=== PATIENT | female | born 1955 | race Caucasian/White ===

== ENCOUNTER → 2018-01-27 16:08 | Outpatient (CLI) | payer OTHER, SELFPAY ==
[2018-01-27 17:34] LABS: Absolute Lymphocyte Count 2.71 X10^3/ul (0.83-4.51); Basophil# 0.03 X10^3/uL; Basophil% 0.4 % (0-1); Eosinophil# 0.09 X10^3/uL; Eosinophils% 1.2 % (0-5); Hematocrit 41.8 % (37-47); Lymphocyte # 2.71 X10^3/ul (4.0); Lymphocyte % 36.9 % (19-41); Mean Corp Hgb Conc 33.5 g/gl (32-36); Mean Corpuscular Hgb 31.3 pg (27.0-32.0); Mean Corpuscular Volume 93.3 fL (81-99); Mean Platelet Vol. 9.5 fl (6.2-12.0); Monocyte# 0.55 X10^3/uL; Monocyte% 7.5 % (0-10); Neutrophil # 3.95 X10^3/uL (2.7-7.7); Neutrophil % 53.9 % (47-70); Platelet Count 314 K/mm3 (150-450); RBC Distribution Width SD 43.4 fl (35.1-43.9); Red Blood Count 4.48 M/mm3 (4.2-5.4); White Blood Count 7.3 K/mm3 (4.4-11.0)
[2018-01-27 17:49] LABS: POSITIVE COUNT NO; POSITIVE DIFFERENTIAL NO; POSITIVE MORPHOLOGY NO
== END ==
PROVIDERS: Family Provider Family Medicine; PCP Family Medicine; Visit Provider Internal Medicine Gastroenterology
DX: K50.90 Crohn's disease, unspecified, without complications (principal)
CPT/HCPCS: 36415; 85025

== ENCOUNTER → 2018-02-03 15:13 | Outpatient (CLI) | payer OTHER, SELFPAY | PROVIDERS: Family Provider Family Medicine; PCP Family Medicine; Visit Provider Internal Medicine Gastroenterology | DX: K50.90 Crohn's disease, unspecified, without complications (principal) ==

== ENCOUNTER 2018-02-27 10:12 | Outpatient (RCR) | payer OTHER, SELFPAY ==
[2018-02-27 13:04] LABS: AST(SGOT) 16 U/L (15-37); Alanine Aminotransfer ALT/SGPT 26 U/L (13-56); Albumin, Serum 3.8 g/dL (3.2-5.0); Alkaline Phosphatase 107 U/L (45-117); Bilirubin, Direct 0.11 mg/dL (0.00-0.30); Globulin 3.1 g/dL (2.2-4.2); Protein, Total 6.9 g/dL (6.4-8.2)
[2018-02-27 13:22] LABS: Absolute Lymphocyte Count 2.37 X10^3/ul (0.83-4.51); Absolute Neutrophil Count 4.8 X10^3/uL (2.0-7.7); Basophil# 0.02 X10^3/uL; Basophil% 0.3 % (0-1); Eosinophil# 0.06 X10^3/uL; Eosinophils% 0.8 % (0-5); Hematocrit 42.8 % (37-47); Lymphocyte # 2.37 X10^3/ul (4.0); Lymphocyte % 30.4 % (19-41); Mean Corp Hgb Conc 32.7 g/gl (32-36); Mean Corpuscular Hgb 30.9 pg (27.0-32.0); Mean Corpuscular Volume 94.5 fL (81-99); Mean Platelet Vol. 9.9 fl (6.2-12.0); Monocyte# 0.55 X10^3/uL; Monocyte% 7.1 % (0-10); Neutrophil # 4.78 X10^3/uL (2.7-7.7); Neutrophil % 61.1 % (47-70); Platelet Count 328 K/mm3 (150-450); RBC Distribution Width CV 13.4 % (11.6-14.6); RBC Distribution Width SD 46.5 fl (35.1-43.9); Red Blood Count 4.53 M/mm3 (4.2-5.4); White Blood Count 7.8 K/mm3 (4.4-11.0)
[2018-02-27 13:33] LABS: POSITIVE COUNT NO; POSITIVE DIFFERENTIAL NO; POSITIVE MORPHOLOGY NO
== END 2018-02-27 11:00 | disposition home or self-care (01) ==
LOC: MTLAB 10:12
PROVIDERS: Family Provider Family Medicine; PCP Family Medicine; Visit Provider Internal Medicine Gastroenterology
DX: K50.90 Crohn's disease, unspecified, without complications (principal)
CPT/HCPCS: 36415; 80076; 85025

== ENCOUNTER → 2018-04-13 07:47 | Outpatient (CLI) | payer OTHER, SELFPAY ==
--- NOTE | 2018-04-13 07:50 | BI_ITS ---
MAMMOGRAPHY - BILATERAL SCREENING REASON FOR EXAM: Female, 62 years old. Routine annual screening examination. PERTINENT HISTORY: Non-contributory. TECHNIQUE: Digital bilateral breast des (3D mammographic acquisition) in the CC and MLO projections. 2-D mediolateral oblique (MLO) and craniocaudad (CC) views of both breasts were obtained. CAD: Full Field Digital Mammography with Computer Added Detection was performed. COMPARISON: Comparison is made with prior study dated March 15, 2017 and May 15, 2015. FINDINGS: Breast Composition: There are scattered areas of fibroglandular density. There are no dominant masses or suspicious calcifications. Stable benign-appearing small bilateral axillary lymph nodes. No other significant abnormalities are identified. There has been no significant change since the prior study. BI/SCREENING MAMM (CAD), BILAT IMPRESSION: Stable bilateral screening mammogram. Yearly follow-up mammogram recommended. (A) ASSESSMENT CATEGORY: BIRADS Category 2: Benign. A letter regarding these results will be sent to the patient by the facility within 30 days. Approximately 10% of breast cancers are not detected by mammography. A normal mammogram should not delay biopsy of a clinically suspicious abnormality. [id number] Electronically Signed: Nixon Leonardo MD at 15:39 EDT Tel [phone], Service support ,
== END ==
PROVIDERS: Family Provider Family Medicine; PCP Family Medicine; Visit Provider Obstetrics & Gynecology
DX: Z12.31 Encounter for screening mammogram for malignant neoplasm of breast (principal)
CPT/HCPCS: 77063; 77067

== ENCOUNTER → 2018-04-28 15:33 | Outpatient (CLI) | payer OTHER, SELFPAY ==
[2018-04-28 17:25] LABS: Absolute Lymphocyte Count 2.12 X10^3/ul (0.83-4.51); Absolute Neutrophil Count 5.1 X10^3/uL (2.0-7.7); Basophil# 0.03 X10^3/uL; Basophil% 0.4 % (0-1); Eosinophils% 1.3 % (0-5); Hematocrit 42.3 % (37-47); Lymphocyte # 2.12 X10^3/ul (4.0); Lymphocyte % 26.8 % (19-41); Mean Corp Hgb Conc 33.1 g/gl (32-36); Mean Corpuscular Hgb 31.3 pg (27.0-32.0); Mean Corpuscular Volume 94.6 fL (81-99); Mean Platelet Vol. 9.7 fl (6.2-12.0); Monocyte# 0.54 X10^3/uL; Monocyte% 6.8 % (0-10); Neutrophil # 5.11 X10^3/uL (2.7-7.7); Neutrophil % 64.4 % (47-70); Platelet Count 323 K/mm3 (150-450); RBC Distribution Width CV 12.7 % (11.6-14.6); RBC Distribution Width SD 43.4 fl (35.1-43.9); Red Blood Count 4.47 M/mm3 (4.2-5.4); White Blood Count 7.9 K/mm3 (4.4-11.0)
[2018-04-28 17:29] LABS: POSITIVE COUNT NO; POSITIVE DIFFERENTIAL NO; POSITIVE MORPHOLOGY NO
[2018-04-28 17:34] LABS: AST(SGOT) 17 U/L (15-37); Alanine Aminotransfer ALT/SGPT 24 U/L (13-56); Albumin, Serum 3.7 g/dL (3.2-5.0); Alkaline Phosphatase 91 U/L (45-117); Bilirubin, Direct 0.12 mg/dL (0.00-0.30); Globulin 3.3 g/dL (2.2-4.2)
== END ==
PROVIDERS: Family Provider Family Medicine; PCP Family Medicine; Visit Provider Internal Medicine Gastroenterology
DX: K50.90 Crohn's disease, unspecified, without complications (principal)
CPT/HCPCS: 36415; 80076; 85025

== ENCOUNTER → 2018-07-28 15:05 | Outpatient (CLI) | payer OTHER, SELFPAY ==
[2018-07-28 17:28] LABS: Absolute Lymphocyte Count 1.83 X10^3/ul (0.83-4.51); Absolute Neutrophil Count 6.6 X10^3/uL (2.0-7.7); Basophil# 0.02 X10^3/uL; Basophil% 0.2 % (0-1); Eosinophil# 0.02 X10^3/uL; Eosinophils% 0.2 % (0-5); Hemoglobin 14.1 g/dl (12.0-15.0); Lymphocyte # 1.83 X10^3/ul (4.0); Lymphocyte % 20.4 % (19-41); Mean Corp Hgb Conc 32.8 g/gl (32-36); Mean Corpuscular Hgb 31.5 pg (27.0-32.0); Mean Corpuscular Volume 96.2 fL (81-99); Mean Platelet Vol. 9.6 fl (6.2-12.0); Monocyte# 0.45 X10^3/uL; Neutrophil # 6.59 X10^3/uL (2.7-7.7); Neutrophil % 73.8 % (47-70); Platelet Count 328 K/mm3 (150-450); RBC Distribution Width CV 13.3 % (11.6-14.6); RBC Distribution Width SD 45.4 fl (35.1-43.9); Red Blood Count 4.47 M/mm3 (4.2-5.4)
[2018-07-28 17:29] LABS: POSITIVE COUNT NO; POSITIVE DIFFERENTIAL NO; POSITIVE MORPHOLOGY NO
[2018-07-28 17:41] LABS: AST(SGOT) 24 U/L (15-37); Alanine Aminotransfer ALT/SGPT 35 U/L (13-56); Albumin, Serum 3.6 g/dL (3.2-5.0); Alkaline Phosphatase 101 U/L (45-117); Bilirubin, Direct 0.14 mg/dL (0.00-0.30); Globulin 3.1 g/dL (2.2-4.2); Protein, Total 6.7 g/dL (6.4-8.2)
== END ==
PROVIDERS: Family Provider Family Medicine; PCP Family Medicine; Referring Provider Internal Medicine Gastroenterology; Visit Provider Internal Medicine Gastroenterology
DX: K50.00 Crohn's disease of small intestine without complications (principal)
CPT/HCPCS: 36415; 80076; 85025

== ENCOUNTER → 2018-09-15 12:55 | Outpatient (CLI) | payer OTHER, SELFPAY ==
[2018-09-15 13:37] LABS: AST(SGOT) 16 U/L (15-37); Alanine Aminotransfer ALT/SGPT 27 U/L (13-56); Albumin, Serum 3.7 g/dL (3.2-5.0); Alkaline Phosphatase 122 U/L (45-117); Bilirubin, Direct 0.11 mg/dL (0.00-0.30); Globulin 3.3 g/dL (2.2-4.2)
== END ==
PROVIDERS: Family Provider Family Medicine; PCP Family Medicine; Referring Provider Internal Medicine Gastroenterology; Visit Provider Internal Medicine Gastroenterology
DX: K50.90 Crohn's disease, unspecified, without complications (principal)
CPT/HCPCS: 36415; 80076

== ENCOUNTER → 2019-01-25 10:55 | Outpatient (CLI) | payer OTHER, SELFPAY ==
[2019-01-25 12:44] LABS: AST(SGOT) 15 U/L (15-37); Alanine Aminotransfer ALT/SGPT 26 U/L (13-56); Alkaline Phosphatase 98 U/L (45-117); Bilirubin, Direct 0.13 mg/dL (0.00-0.30); Globulin 3.1 g/dL (2.2-4.2); Protein, Total 7.1 g/dL (6.4-8.2)
== END ==
PROVIDERS: Family Provider Family Medicine; PCP Family Medicine; Referring Provider Internal Medicine Gastroenterology; Visit Provider Internal Medicine Gastroenterology
DX: K50.90 Crohn's disease, unspecified, without complications (principal)
CPT/HCPCS: 36415; 80076

== ENCOUNTER → 2019-03-29 13:41 | Outpatient (CLI) | payer OTHER, SELFPAY ==
[2019-03-29 15:46] LABS: Absolute Lymphocyte Count 2.08 X10^3/ul (0.83-4.51); Basophil# 0.02 X10^3/uL; Basophil% 0.3 % (0-1); Eosinophil# 0.09 X10^3/uL; Eosinophils% 1.2 % (0-5); Hematocrit 41.6 % (37-47); Hemoglobin 13.7 g/dl (12.0-15.0); Lymphocyte # 2.08 X10^3/ul (4.0); Lymphocyte % 27.1 % (19-41); Mean Corp Hgb Conc 32.9 g/gl (32-36); Mean Corpuscular Hgb 31.6 pg (27.0-32.0); Mean Corpuscular Volume 95.9 fL (81-99); Mean Platelet Vol. 9.5 fl (6.2-12.0); Monocyte# 0.45 X10^3/uL; Monocyte% 5.9 % (0-10); Neutrophil # 5.02 X10^3/uL (2.7-7.7); Neutrophil % 65.4 % (47-70); Platelet Count 285 K/mm3 (150-450); RBC Distribution Width CV 13.2 % (11.6-14.6); RBC Distribution Width SD 46.3 fl (35.1-43.9); Red Blood Count 4.34 M/mm3 (4.2-5.4); White Blood Count 7.7 K/mm3 (4.4-11.0)
[2019-03-29 15:49] LABS: POSITIVE COUNT NO; POSITIVE DIFFERENTIAL NO; POSITIVE MORPHOLOGY NO
== END ==
PROVIDERS: Family Provider Family Medicine; PCP Family Medicine; Referring Provider Internal Medicine Gastroenterology; Visit Provider Internal Medicine Gastroenterology
DX: K50.90 Crohn's disease, unspecified, without complications (principal)
CPT/HCPCS: 36415; 85025

== ENCOUNTER → 2019-04-19 | Outpatient (CLI) | payer OTHER, SELFPAY ==
--- NOTE | 2019-04-19 09:41 | RAD_ITS ---
STUDY: X-RAY - RIGHT CALCANEUS REASON FOR EXAM: Female, 63 years old. Pain swelling TECHNIQUE: 2 view(s) of the calcaneus were obtained. COMPARISON: None. FINDINGS: There is an Achilles spur. There is no plantar spur. No visualized fracture. RAD/Calcaneus min 2 Views IMPRESSION: Achilles spur. No significant visualized plantar spur Electronically Signed: Khushbu Szymanski MD at 16:01 EDT Tel , Service support ,
== END | disposition home or self-care (01) ==
LOC: MTRAD 09:40
PROVIDERS: Family Provider Family Medicine; PCP Family Medicine; Referring Provider Family Medicine; Visit Provider Family Medicine
DX: M79.671 Pain in right foot (principal)
CPT/HCPCS: 73650

== ENCOUNTER → 2019-05-04 09:46 | Outpatient (CLI) | payer OTHER, SELFPAY ==
--- NOTE | 2019-05-04 09:51 | BI_ITS ---
MAMMOGRAPHY - BILATERAL SCREENING REASON FOR EXAM: Female, 63 years old. Routine annual screening examination. PERTINENT HISTORY: Chronic left breast lump. TECHNIQUE: Digital bilateral breast leonard (3D mammographic acquisition) in the CC and MLO projections. 2-D mediolateral oblique (MLO) and craniocaudad (CC) views of both breasts were obtained. CAD: Full Field Digital Mammography with Computer Added Detection was performed. COMPARISON: Comparison is made with prior examination dated April 13, 2018 and March 15, 2017. FINDINGS: Breast Composition: There are scattered areas of fibroglandular density. There are no dominant masses or suspicious calcifications. There is a stable 1 cm x 1.5 cm nodular density in the axillary region of the left breast most likely representing a small lymph node. Correlation with ultrasound is recommended. Stable benign-appearing bilateral axillary lymph nodes. No other significant abnormalities are identified. There has been no significant change since the prior study. BI/SCREEN MAMM (CAD) W/LEONARD BILAT IMPRESSION: Stable bilateral screening mammogram. Correlation with ultrasound of the upper-outer quadrant of the left breast is recommended for further evaluation. ASSESSMENT CATEGORY: BIRADS Category 0: Incomplete. Need additional imaging evaluation. A letter regarding these results will be sent to the patient by the facility within 30 days. Approximately 10% of breast cancers are not detected by mammography. A normal mammogram should not delay biopsy of a clinically suspicious abnormality. [id number] Electronically Signed: Nixon Leonardo, at 11:02 EDT , Service support ,
== END ==
PROVIDERS: Family Provider Family Medicine; PCP Family Medicine; Referring Provider Obstetrics & Gynecology; Visit Provider Obstetrics & Gynecology
DX: Z12.31 Encounter for screening mammogram for malignant neoplasm of breast (principal)
CPT/HCPCS: 77063; 77067

== ENCOUNTER → 2019-05-11 09:14 | Outpatient (CLI) | payer OTHER, SELFPAY ==
--- NOTE | 2019-05-11 09:16 | US_ITS ---
STUDY: ULTRASOUND BREAST - LEFT REASON FOR EXAM: Female, 63 years old. Abnormal screening mammogram. TECHNIQUE: Axial and longitudinal images of the LEFT breast were performed with a high resolution ultrasound transducer. COMPARISON: Comparison is made with prior mammogram dated May 04, 2019. FINDINGS: LEFT Breast: There is a 7 mm x 8 mm x 4 mm well-defined hypoechoic nodule with a central echogenic hilum suggestive of a small lymph node. This is at the 1:00 patient breast at 12 cm from nipple. US/Breast Limited Unilateral IMPRESSION: The mammographic abnormality corresponds to a benign appearing lymph node. Routine mammographic follow-up is recommended. ASSESSMENT CATEGORY: BIRADS Category 2: Benign. A letter regarding these results will be sent to the patient by the facility within 30 days. Electronically Signed: Nixon Leonardo, at 10:32 EDT , Service support ,
== END ==
PROVIDERS: Family Provider Family Medicine; PCP Family Medicine; Referring Provider Obstetrics & Gynecology; Visit Provider Obstetrics & Gynecology
DX: R92.8 Other abnormal and inconclusive findings on diagnostic imaging of breast (principal)
CPT/HCPCS: 76642

== ENCOUNTER → 2019-08-16 07:17 | Outpatient (CLI) | payer OTHER, SELFPAY ==
[2019-08-16 10:23] LABS: Absolute Lymphocyte Count 1.74 X10^3/uL (0.83-4.51); Basophil# 0.04 X10^3/uL; Basophil% 0.6 % (0-1); Eosinophil# 0.08 X10^3/uL; Eosinophils% 1.3 % (0-5); Hematocrit 43.9 % (37-47); Hemoglobin 14.6 g/dL (12.0-15.0); Lymphocyte # 1.74 X10^3/ul (4.0); Lymphocyte % 27.5 % (19-41); Mean Corp Hgb Conc 33.3 g/dL (32-36); Mean Corpuscular Hgb 32.2 pg (27.0-32.0); Mean Corpuscular Volume 96.7 fL (81-99); Monocyte# 0.46 X10^3/uL; Monocyte% 7.3 % (0-10); NRBC Flagged by Analyzer 0 % (0-5); Neutrophil # 3.96 X10^3/uL (2.7-7.7); Neutrophil % 62.7 % (47-70); Platelet Count 307 K/mm3 (150-450); RBC Distribution Width CV 12.7 % (11.6-14.6); RBC Distribution Width SD 45.1 fl (35.1-43.9); Red Blood Count 4.54 M/mm3 (4.2-5.4); White Blood Count 6.3 K/mm3 (4.4-11.0)
[2019-08-16 10:44] LABS: AST(SGOT) 15 U/L (15-37); Alanine Aminotransfer ALT/SGPT 26 U/L (13-56); Albumin, Serum 3.8 g/dL (3.2-5.0); Alkaline Phosphatase 93 U/L (45-117); Bilirubin, Direct 0.16 mg/dL (0.00-0.30); Globulin 3.2 g/dL (2.2-4.2)
== END ==
PROVIDERS: Family Provider Family Medicine; PCP Family Medicine; Referring Provider Internal Medicine Gastroenterology; Visit Provider Internal Medicine Gastroenterology
DX: K50.90 Crohn's disease, unspecified, without complications (principal)
CPT/HCPCS: 36415; 80076; 85025

== ENCOUNTER → 2020-04-11 14:05 | Outpatient (CLI) | payer BC, SELFPAY ==
[2020-04-11 17:56] LABS: Absolute Lymphocyte Count 2.26 X10^3/uL (0.83-4.51); Absolute Neutrophil Count 4.9 X10^3/uL (2.0-7.7); Basophil# 0.04 X10^3/uL; Basophil% 0.5 % (0-1); Eosinophil# 0.09 X10^3/uL; Eosinophils% 1.1 % (0-5); Hematocrit 42.3 % (37-47); Hemoglobin 13.5 g/dL (12.0-15.0); Lymphocyte # 2.26 X10^3/ul (4.0); Lymphocyte % 28.6 % (19-41); Mean Corp Hgb Conc 31.9 g/dL (32-36); Mean Corpuscular Hgb 31.6 pg (27.0-32.0); Mean Corpuscular Volume 99.1 fL (81-99); Mean Platelet Vol. 9.9 fl (6.2-12.0); Monocyte% 7.6 % (0-10); NRBC Flagged by Analyzer 0 % (0-5); Neutrophil # 4.87 X10^3/uL (2.7-7.7); Neutrophil % 61.8 % (47-70); Platelet Count 305 K/mm3 (150-450); RBC Distribution Width CV 12.8 % (11.6-14.6); RBC Distribution Width SD 45.8 fl (35.1-43.9); Red Blood Count 4.27 M/mm3 (4.2-5.4); White Blood Count 7.9 K/mm3 (4.4-11.0)
[2020-04-11 18:03] LABS: AST(SGOT) 13 U/L (15-37); Alanine Aminotransfer ALT/SGPT 23 U/L (13-56); Albumin, Serum 3.8 g/dL (3.2-5.0); Alkaline Phosphatase 89 U/L (45-117); Bilirubin, Direct 0.19 mg/dL (0.00-0.30); Globulin 3.1 g/dL (2.2-4.2); Protein, Total 6.9 g/dL (6.4-8.2)
== END ==
PROVIDERS: PCP Family Medicine; Referring Provider Internal Medicine Gastroenterology; Visit Provider Internal Medicine Gastroenterology
DX: K50.90 Crohn's disease, unspecified, without complications (principal)
CPT/HCPCS: 36415; 80076; 85025

== ENCOUNTER → 2020-04-25 10:32 | Outpatient (CLI) | payer BC, SELFPAY ==
[2020-04-25 12:41] LABS: Hepatitis B Surface Antigen Non-Reactive (Nonreactive)
[2020-04-29 20:07] LABS: QNTFERON TB Mitogen Value > 10.00 IU/mL (.); QNTFERON TB Nil Value 0.02 IU/mL (.); QNTFERON TB2+ Ag Value 0.29 IU/mL (.)
[2020-04-30 15:14] LABS: QNTIFERON TB Positive Criteria Positive (Negative)
== END ==
PROVIDERS: PCP Family Medicine; Referring Provider Internal Medicine Gastroenterology; Visit Provider Internal Medicine Gastroenterology
DX: K58.9 Irritable bowel syndrome, unspecified (principal)
CPT/HCPCS: 36415; 86480; 87340

== ENCOUNTER → 2020-05-01 14:30 | Outpatient (CLI) | payer BC, SELFPAY ==
--- NOTE | 2020-05-01 14:32 | RAD_ITS ---
STUDY: X-RAY CHEST REASON FOR EXAM: Female, 64 years old. patient had positive TB blood test, has no chest complaints, Hx of smoker many years ago TECHNIQUE: 2 views COMPARISON: None. FINDINGS: The lungs are clear and expanded. There is no demonstrated pleural abnormality. Normal size heart. Normal mediastinum and andree. Normal visualized pulmonary arteries. There is atherosclerotic calcification of the aortic arch with tortuosity. Normal visualized thoracic spine. Normal visualized ribs, clavicles, and shoulders. There is no demonstrated abnormality of the visualized soft tissue structures of the upper abdomen. RAD/Chest PA and Lateral IMPRESSION: Normal x-ray examination of the chest. No radiographic evidence of active pulmonary tuberculosis. Electronically Signed: Alexandria Green MD at 19:51 EDT , Service support ,
== END ==
PROVIDERS: PCP Family Medicine; Referring Provider Internal Medicine Gastroenterology; Visit Provider Internal Medicine Gastroenterology
DX: R76.12 Nonspecific reaction to cell mediated immunity measurement of gamma interferon antigen response without active tuberculosis (principal)
CPT/HCPCS: 71046

== ENCOUNTER → 2020-05-23 12:41 | Outpatient (CLI) | payer BC, SELFPAY ==
[2020-05-23 12:48] VITALS: BP 149/81; PULSE 70; RESP 16; TEMP 36.6; O2SAT 97; BMI 29.2
[2020-05-23 14:36] VITALS: BP 139/78; PULSE 72; RESP 16; TEMP 36.6
== END ==
PROVIDERS: PCP Family Medicine; Referring Provider Internal Medicine Gastroenterology; Visit Provider Internal Medicine Gastroenterology
DX: K50.90 Crohn's disease, unspecified, without complications (principal)
CPT/HCPCS: 96365; J7050; A4216; J3358

== ENCOUNTER → 2020-11-07 12:15 | Outpatient (CLI) | payer BC, SELFPAY ==
[2020-05-23 12:48] VITALS: BMI 29.2
[2020-11-07 15:45] LABS: AST(SGOT) 16 U/L (15-37); Alanine Aminotransfer ALT/SGPT 35 U/L (13-56); Albumin, Serum 3.9 g/dL (3.2-5.0); Alkaline Phosphatase 111 U/L (45-117); Bilirubin, Direct 0.16 mg/dL (0.00-0.30); Globulin 3.2 g/dL (2.2-4.2); Protein, Total 7.1 g/dL (6.4-8.2)
[2020-11-07 15:46] LABS: Absolute Lymphocyte Count 2.31 X10^3/uL (0.83-4.51); Basophil# 0.05 X10^3/uL; Basophil% 0.6 % (0-1); Eosinophil# 0.12 X10^3/uL; Eosinophils% 1.5 % (0-5); Hematocrit 45.5 % (37-47); Hemoglobin 14.7 g/dL (12.0-15.0); Lymphocyte # 2.31 X10^3/ul (4.0); Lymphocyte % 28.7 % (19-41); Mean Corp Hgb Conc 32.3 g/dL (32-36); Mean Corpuscular Hgb 30.8 pg (27.0-32.0); Mean Corpuscular Volume 95.4 fL (81-99); Mean Platelet Vol. 9.9 fl (6.2-12.0); Monocyte# 0.51 X10^3/uL; Monocyte% 6.3 % (0-10); NRBC Flagged by Analyzer 0 % (0-5); Neutrophil # 5.04 X10^3/uL (2.7-7.7); Neutrophil % 62.7 % (47-70); Platelet Count 336 K/mm3 (150-450); RBC Distribution Width CV 12.3 % (11.6-14.6); Red Blood Count 4.77 M/mm3 (4.2-5.4); White Blood Count 8.1 K/mm3 (4.4-11.0)
== END ==
PROVIDERS: PCP Family Medicine; Referring Provider Internal Medicine Gastroenterology; Visit Provider Internal Medicine Gastroenterology
DX: K50.90 Crohn's disease, unspecified, without complications (principal)
CPT/HCPCS: 36415; 80076; 85025

== ENCOUNTER → 2021-02-27 13:49 | Outpatient (CLI) | payer BC, SELFPAY ==
[2020-05-23 12:48] VITALS: BMI 29.2
== END ==
PROVIDERS: PCP Family Medicine; Referring Provider Internal Medicine Gastroenterology; Visit Provider Internal Medicine Gastroenterology
DX: K50.90 Crohn's disease, unspecified, without complications (principal)
CPT/HCPCS: 36415; 86140

== ENCOUNTER → 2021-04-10 13:24 | Outpatient (CLI) | payer BC, SELFPAY ==
[2020-05-23 12:48] VITALS: BMI 29.2
--- NOTE | 2021-04-10 13:26 | BI_ITS ---
MAMMOGRAPHY - BILATERAL SCREENING REASON FOR EXAM: Female, 65 years old. Routine annual screening examination. PERTINENT HISTORY: Non-contributory. TECHNIQUE: Digital bilateral breast leonard (3D mammographic acquisition) in the CC and MLO projections. 2-D mediolateral oblique (MLO) and craniocaudad (CC) views of both breasts were obtained. CAD: Full Field Digital Mammography with Computer Added Detection was performed. COMPARISON: Comparison is made with prior study dated 05/04/2019 and 04/13/2018. FINDINGS: Breast Composition: There are scattered areas of fibroglandular density. There are no dominant masses or suspicious calcifications. Stable 1.5 cm x 1 cm nodular density in the axillary region of the left breast. This most likely represents a small left. This is unchanged. No other significant abnormalities are identified. There has been no significant change since the prior study. BI/SCRN MAMM (CAD)W/LEONARD BILAT IMPRESSION: Stable bilateral screening mammogram. Yearly follow-up mammogram recommended. (A) ASSESSMENT CATEGORY: BIRADS Category 2: Benign. A letter regarding these results will be sent to the patient by the facility within 30 days. Approximately 10% of breast cancers are not detected by mammography. A normal mammogram should not delay biopsy of a clinically suspicious abnormality. [id number] Electronically Signed: Nixon Leonardo MD at 14:53 EDT , Service support ,
== END ==
PROVIDERS: PCP Family Medicine; Referring Provider Obstetrics & Gynecology; Visit Provider Obstetrics & Gynecology
DX: Z12.31 Encounter for screening mammogram for malignant neoplasm of breast (principal)
CPT/HCPCS: 77063; 77067

== ENCOUNTER → 2021-08-28 13:58 | Outpatient (CLI) | payer BC, SELFPAY ==
[2021-08-28 15:02] LABS: Hemoglobin 14.1 g/dL (12.0-15.0); Mean Corp Hgb Conc 32.8 g/dL (32-36); Mean Corpuscular Hgb 30.5 pg (27.0-32.0); Mean Corpuscular Volume 93.1 fL (81-99); Mean Platelet Vol. 9.9 fl (6.2-12.0); Platelet Count 296 K/mm3 (150-450); RBC Distribution Width CV 12.4 % (11.6-14.6); RBC Distribution Width SD 42.5 fl (35.1-43.9); Red Blood Count 4.62 M/mm3 (4.2-5.4); White Blood Count 8.5 K/mm3 (4.4-11.0)
[2021-08-28 15:38] LABS: CRP 6.47 mg/L (0.0-3.0)
== END ==
PROVIDERS: PCP Family Medicine; Referring Provider Internal Medicine Gastroenterology; Visit Provider Internal Medicine Gastroenterology
DX: K50.90 Crohn's disease, unspecified, without complications (principal)
CPT/HCPCS: 36415; 85027; 86140

== ENCOUNTER 2022-01-22 07:06 | Outpatient (CLI) | payer BC, SELFPAY ==
[2022-01-22 10:43] LABS: Anion Gap 5 (5-15); BUN 13 mg/dL (7-18); BUN/Creat Ratio 18.1 RATIO (10-20); Calcium,Total 8.9 mg/dL (8.5-10.1); Chloride 109 mmol/L (98-107); Cholesterol 213 mg/dL (200); Creatinine, Serum 0.72 mg/dL (0.55-1.02); EST Glomerular Filtration Rate 87 mL/min (>60); Est Glom Filt Rate - Afr Amer 105 mL/min (>60); Glucose 93 mg/dL (74-106); High Density Lipoprotein 49 mg/dL; Potassium 4.1 mmol/L (3.5-5.1); Sodium Level 143 mmol/L (136-145); Triglycerides 113 mg/dL; Very Low Density Lipoprotein 23 mg/dL (5-40)
== END 2022-01-22 23:59 | disposition home or self-care (01) ==
LOC: MTLAB 07:08
PROVIDERS: PCP Family Medicine; Referring Provider Family Medicine; Visit Provider Family Medicine
DX: I10 Essential (primary) hypertension (principal)
CPT/HCPCS: 36415; 80048; 80061

== ENCOUNTER → 2022-02-18 | Outpatient (CLI) | payer BC, SELFPAY ==
[2022-02-18 12:13] LABS: Hematocrit 43.1 % (37-47); Hemoglobin 14.3 g/dL (12.0-15.0); Mean Corp Hgb Conc 33.2 g/dL (32-36); Mean Corpuscular Hgb 30.7 pg (27.0-32.0); Mean Corpuscular Volume 92.5 fL (81-99); Mean Platelet Vol. 9.7 fl (6.2-12.0); Platelet Count 325 K/mm3 (150-450); RBC Distribution Width CV 12.3 % (11.6-14.6); RBC Distribution Width SD 42.1 fl (35.1-43.9); Red Blood Count 4.66 M/mm3 (4.2-5.4); White Blood Count 8.6 K/mm3 (4.4-11.0)
[2022-02-18 12:41] LABS: CRP 4.33 mg/L (0.0-3.0)
== END | disposition home or self-care (01) ==
LOC: MTLAB 10:00
PROVIDERS: PCP Family Medicine; Referring Provider Internal Medicine Gastroenterology; Visit Provider Internal Medicine Gastroenterology
DX: K50.90 Crohn's disease, unspecified, without complications (principal)
CPT/HCPCS: 36415; 85027; 86140

== ENCOUNTER → 2022-04-23 | Outpatient (CLI) | payer BC, SELFPAY ==
--- NOTE | 2022-04-23 08:21 | BI_ITS ---
MAMMOGRAPHY - BILATERAL SCREENING REASON FOR EXAM: Female, 66 years old. Routine annual screening examination. PERTINENT HISTORY: Non-contributory. TECHNIQUE: Digital bilateral breast leonard (3D mammographic acquisition) in the CC and MLO projections. 2-D mediolateral oblique (MLO) and craniocaudad (CC) views of both breasts were obtained. CAD: Full Field Digital Mammography with Computer Added Detection was performed. COMPARISON: Comparison is made with prior study dated 04/10/2021 and 05/04/2019. FINDINGS: Breast Composition: There are scattered areas of fibroglandular density. There are no dominant masses or suspicious calcifications. Stable small benign-appearing bilateral axillary nodes. No other significant abnormalities are identified. There has been no significant change since the prior study. BI/SCRN MAMM (CAD)W/LEONARD BILAT IMPRESSION: Stable bilateral screening mammogram. Yearly follow-up mammogram recommended. (A) ASSESSMENT CATEGORY: BIRADS Category 2: Benign. A letter regarding these results will be sent to the patient by the facility within 30 days. Approximately 10% of breast cancers are not detected by mammography. A normal mammogram should not delay biopsy of a clinically suspicious abnormality. [id number] Electronically Signed: Nixon Leonardo MD at 13:43 EDT ,
== END | disposition home or self-care (01) ==
LOC: OPBI 08:20
PROVIDERS: PCP Family Medicine; Visit Provider Obstetrics & Gynecology
DX: Z12.31 Encounter for screening mammogram for malignant neoplasm of breast (principal)
CPT/HCPCS: 77063; 77067

== ENCOUNTER → 2022-05-07 | Outpatient (CLI) | payer BC, SELFPAY ==
[2022-05-07 10:37] LABS: Cholesterol 243 mg/dL (200); High Density Lipoprotein 66 mg/dL; Triglycerides 90 mg/dL; Very Low Density Lipoprotein 18 mg/dL (5-40)
== END | disposition home or self-care (01) ==
LOC: MTLAB 07:22
PROVIDERS: PCP Family Medicine; Referring Provider Family Medicine; Visit Provider Family Medicine
DX: E78.5 Hyperlipidemia, unspecified (principal)
CPT/HCPCS: 36415; 80061

== ENCOUNTER → 2022-11-12 | Outpatient (CLI) | payer BC, SELFPAY ==
[2022-11-12 10:34] LABS: Anion Gap 8 (5-15); BUN 15 mg/dL (7-18); BUN/Creat Ratio 22.3 RATIO (10-20); Calcium,Total 9.1 mg/dL (8.5-10.1); Chloride 106 mmol/L (98-107); Cholesterol 182 mg/dL (200); Creatinine, Serum 0.67 mg/dL (0.55-1.02); EST Glomerular Filtration Rate 93 mL/min (>60); Est Glom Filt Rate - Afr Amer 113 mL/min (>60); Glucose 88 mg/dL (74-106); High Density Lipoprotein 70 mg/dL; Potassium 4.1 mmol/L (3.5-5.1); Sodium Level 142 mmol/L (136-145); Triglycerides 108 mg/dL; Very Low Density Lipoprotein 22 mg/dL (5-40)
== END | disposition home or self-care (01) ==
LOC: MFPLAB 08:46
PROVIDERS: PCP Family Medicine; Visit Provider Family Medicine
DX: E78.5 Hyperlipidemia, unspecified (principal)
CPT/HCPCS: 36415; 80048; 80061

== ENCOUNTER → 2023-04-26 | Outpatient (CLI) | payer BC, SELFPAY ==
[2023-04-26 18:09] LABS: Absolute Lymphocyte Count 2.84 X10^3/uL (0.83-4.51); Absolute Neutrophil Count 4.9 X10^3/uL (2.0-7.7); Basophil# 0.05 X10^3/uL; Basophil% 0.6 % (0-1); Eosinophil# 0.18 X10^3/uL; Eosinophils% 2.1 % (0-5); Hematocrit 41.9 % (37-47); Hemoglobin 13.5 g/dL (12.0-15.0); Lymphocyte # 2.84 X10^3/ul (0.83-4.51); Mean Corp Hgb Conc 32.2 g/dL (32-36); Mean Corpuscular Hgb 30.1 pg (27.0-32.0); Mean Corpuscular Volume 93.5 fL (81-99); Mean Platelet Vol. 9.5 fl (6.2-12.0); Monocyte# 0.54 X10^3/uL; Monocyte% 6.3 % (0-10); NRBC Flagged by Analyzer 0 % (0-5); Neutrophil # 4.94 X10^3/uL (2.7-7.7); Neutrophil % 57.4 % (47-70); Platelet Count 372 K/mm3 (150-450); RBC Distribution Width CV 11.9 % (11.6-14.6); RBC Distribution Width SD 41.1 fl (35.1-43.9); Red Blood Count 4.48 M/mm3 (4.2-5.4); White Blood Count 8.6 K/mm3 (4.4-11.0)
[2023-04-26 18:15] LABS: CRP, High Sensitivity Cardiac 4.97 mg/L
== END | disposition home or self-care (01) ==
LOC: MTLAB 16:26
PROVIDERS: PCP Family Medicine; Referring Provider Internal Medicine Gastroenterology; Visit Provider Internal Medicine Gastroenterology
DX: K50.00 Crohn's disease of small intestine without complications (principal); D64.9 Anemia, unspecified
CPT/HCPCS: 36415; 85025; 86141

== ENCOUNTER → 2023-05-23 | Outpatient (CLI) | payer BC, SELFPAY ==
[2023-05-23 11:51] LABS: ALB/GLOB Ratio 1.1 RATIO (0.9-2.4); AST(SGOT) 15 U/L (15-37); Alanine Aminotransfer ALT/SGPT 26 U/L (13-56); Albumin, Serum 3.6 g/dL (3.2-5.0); Alkaline Phosphatase 100 U/L (45-117); Anion Gap 4 (5-15); BUN 10 mg/dL (7-18); BUN/Creat Ratio 14.9 RATIO (10-20); Chloride 105 mmol/L (98-107); Cholesterol 175 mg/dL (200); Creatinine, Serum 0.67 mg/dL (0.55-1.02); EST Glomerular Filtration Rate 93 mL/min (>60); Est Glom Filt Rate - Afr Amer 113 mL/min (>60); Globulin 3.2 g/dL (2.2-4.2); Glucose 102 mg/dL (74-106); High Density Lipoprotein 62 mg/dL; Potassium 3.6 mmol/L (3.5-5.1); Protein, Total 6.8 g/dL (6.4-8.2); Sodium Level 139 mmol/L (136-145); Triglycerides 153 mg/dL; Very Low Density Lipoprotein 31 mg/dL (5-40)
== END | disposition home or self-care (01) ==
LOC: MFPLAB 08:47
PROVIDERS: PCP Family Medicine; Visit Provider Family Medicine
DX: R03.0 Elevated blood-pressure reading, without diagnosis of hypertension (principal)
CPT/HCPCS: 36415; 80053; 80061

== ENCOUNTER → 2023-06-22 | Outpatient (CLI) | payer BC, SELFPAY ==
--- NOTE | 2023-06-22 09:48 | BI_ITS ---
MAMMOGRAPHY - BILATERAL SCREENING REASON FOR EXAM: Female, 68 years old. Routine annual screening examination. PERTINENT HISTORY: Non-contributory. TECHNIQUE: Digital bilateral breast leonard (3D mammographic acquisition) in the CC and MLO projections. 2-D mediolateral oblique (MLO) and craniocaudad (CC) views of both breasts were obtained. CAD: Full Field Digital Mammography with Computer Added Detection was performed. COMPARISON: Screening mammogram from 04/23/2022, 04/10/2021. FINDINGS: Breast Composition: There are scattered areas of fibroglandular density. There are no dominant masses or suspicious calcifications. Stable small benign-appearing bilateral axillary lymph nodes. No other significant abnormalities are identified. There has been no significant change since the prior study. BI/SCRN MAMM (CAD)W/LEONARD BILAT IMPRESSION: Stable bilateral screening mammogram. Yearly follow-up mammogram recommended. (A) ASSESSMENT CATEGORY: BIRADS Category 2: Benign. A letter regarding these results will be sent to the patient by the facility within 30 days. Approximately 10% of breast cancers are not detected by mammography. A normal mammogram should not delay biopsy of a clinically suspicious abnormality. Electronically Signed: Stalin Mattson DO at 13:05 EDT ,
--- NOTE | 2023-06-22 10:00 | BD_ITS ---
STUDY: DUAL ENERGY X-RAY ABSORPTIOMETRY / DXA REASON FOR EXAM: Female, 68 years old. [id number] TECHNIQUE: Bone Mineral Density (BMD) measurements of lumbar spine and bilateral hips were obtained. COMPARISON: None. FINDINGS: Lumbar Spine (L1-L4): g/cm2 (0.810) / T-score (-2.2) / Z-score (-0.3) Findings are suggestive of osteopenia with a high fracture risk. Left Femur Total: g/cm2 (0.754) / T-score (-1.5) / Z-score (-0.3) Left Femoral Neck: g/cm2 (0.495) / T-score (-3.2) / Z-score (-1.6) Right Femur Total: g/cm2 (0.703) / T-score (-2.0) / Z-score (-0.7) Right Femoral Neck: g/cm2 (0.597) / T-score (-2.3) / Z-score (-0.7) BD/Dexa Bone Density Study IMPRESSION: The patient is considered osteoporotic as outlined below according to World Fito Organization (WHO) criteria with a high fracture risk. Reference Information: The T-score is the number of standard deviations above or below the standard which is normal for young adults at their peak bone mineral density. The World Health Organization (WHO) interprets the T-scores as follows: Above -1 Normal bone density Between -1 and -2.5 Osteopenia Equal to / or below -2.5 Osteoporosis As a practical clinical guideline, osteopenia may be graded as follows: Mild -1 through -1.5 Moderate -1.6 through -2.0 Severe -2.1 through -2.4 The Z-score is the number of standard deviations above or below age-matched controls. A Z-score of less than -1.5 would be considered abnormal. References: 1. NIH Osteoporosis and Related Bone Diseases www osteo.org 2. International Society for Clinical Densitometry www iscd.org 3. National Osteoporosis Foundation www nof.org Electronically Signed: Nixon Leonardo MD at 13:44 EDT ,
== END | disposition home or self-care (01) ==
LOC: OPBI 09:45
PROVIDERS: PCP Family Medicine; Referring Provider Student in an Organized Health Care Education/Training Program; Visit Provider Student in an Organized Health Care Education/Training Program
DX: Z12.31 Encounter for screening mammogram for malignant neoplasm of breast (principal); Z13.820 Encounter for screening for osteoporosis; Z78.0 Asymptomatic menopausal state
CPT/HCPCS: 77063; 77067; 77080

== ENCOUNTER 2023-10-21 08:06 | Outpatient (CLI) | payer BC, SELFPAY ==
[2023-10-21 08:24] VITALS: BP 157/73; PULSE 70; RESP 16; TEMP 36.6; O2SAT 97; BMI 32.4
[2023-10-21] MEDS: 0.9% NaCl Peripheral Flush Adult/Peds IV (08:34)
[2023-10-21] MEDS: Zoledronic Acid 5 MG 100 ML 300 MG IV (08:48)
[2023-10-21 09:14] VITALS: BP 150/64; PULSE 71; RESP 16; TEMP 36.4; O2SAT 98
== END 2023-10-21 08:07 | disposition home or self-care (01) ==
LOC: MEDOUTP 08:07
PROVIDERS: PCP Family Medicine; Referring Provider Internal Medicine Endocrinology, Diabetes & Metabolism; Visit Provider Internal Medicine Endocrinology, Diabetes & Metabolism
DX: M81.0 Age-related osteoporosis without current pathological fracture (principal)
CPT/HCPCS: 96365; A4216; J3489

== ENCOUNTER → 2023-10-21 | Outpatient (CLI) | payer BC, SELFPAY ==
[2023-10-21 12:13] LABS: Vitamin D,25 Hydroxy 36.4 ng/mL
[2023-10-21 12:16] LABS: PTHIN 22.7 pg/mL (18.4-80.1)
== END | disposition home or self-care (01) ==
LOC: MTLAB 09:40
PROVIDERS: PCP Family Medicine; Referring Provider Internal Medicine Endocrinology, Diabetes & Metabolism; Visit Provider Internal Medicine Endocrinology, Diabetes & Metabolism
DX: M81.0 Age-related osteoporosis without current pathological fracture (principal); E55.9 Vitamin D deficiency, unspecified
CPT/HCPCS: 36415; 82306; 83970; 84443

== ENCOUNTER → 2023-11-18 | Outpatient (CLI) | payer BC, SELFPAY ==
--- OUTSIDE RECORDS SUMMARY | 2023-11-18 09:11 | XMS RPT_ITS | CCD ---
Author Name Unknown Address [address] [place] [address] Organization [facility] Encounters Encounter Date Encounter Type Care Provider Facility Start: 08-16-2017 Ambulatory [facility] Summary Purpose Family History No Family History Records Found Advance Directives No Advanced Directives Records Found Additional Source Comments INFORMATION SOURCE (unrecogn ized section and content) FOR RECORDS PERTAINING TO PATIENTS WHO ARE OR HAVE BEEN ENROLLED IN A CHEMICAL DEPENDENCY/SUBSTANCEABUSE PROGRAM, SOME INFORMATION MAY BE OMITTED. This clinical summary was aggregated from multiple sources. Caution should be exercised in using it in the provision of clinical care. This summary normalizes information from multiple sources, and as a consequence, information in this document may materially change the coding, format and clinical context of patient data. In addition, data may be omitted in some cases. CLINICAL DECISIONS SHOULD BE BASED ON THE PRIMARY CLINICAL RECORDS. [employer] provides no warranty or guarantee of the accuracy or completeness of information in this document.
[2023-11-18 10:45] LABS: Anion Gap 3 (5-15); BUN 8 mg/dL (7-18); BUN/Creat Ratio 11.8 RATIO (10-20); Calcium,Total 9.5 mg/dL (8.5-10.1); Chloride 109 mmol/L (98-107); Cholesterol 160 mg/dL (200); Creatinine, Serum 0.68 mg/dL (0.55-1.02); EST Glomerular Filtration Rate 93 mL/min (>60); Est Glom Filt Rate - Afr Amer 112 mL/min (>60); Glucose 99 mg/dL (74-106); High Density Lipoprotein 64 mg/dL; Potassium 3.8 mmol/L (3.5-5.1); Sodium Level 141 mmol/L (136-145); Triglycerides 104 mg/dL; Very Low Density Lipoprotein 21 mg/dL (5-40)
== END | disposition home or self-care (01) ==
LOC: MFPLAB 08:52
PROVIDERS: PCP Family Medicine; Visit Provider Family Medicine
DX: I10 Essential (primary) hypertension (principal)
CPT/HCPCS: 36415; 80048; 80061

== ENCOUNTER → 2024-04-30 | Outpatient (CLI) | payer BC, SELFPAY ==
[2024-04-30 17:49] LABS: Hematocrit 42.9 % (37-47); Mean Corp Hgb Conc 32.6 g/dL (32-36); Mean Corpuscular Volume 92.1 fL (81-99); Mean Platelet Vol. 9.8 fl (6.2-12.0); Platelet Count 279 K/mm3 (150-450); RBC Distribution Width CV 12.6 % (11.6-14.6); RBC Distribution Width SD 42.4 fl (35.1-43.9); Red Blood Count 4.66 M/mm3 (4.2-5.4); White Blood Count 7.6 K/mm3 (4.4-11.0)
[2024-04-30 18:02] LABS: Erythrocyte Sedimentation Rate 5 mm/hr (0-30)
[2024-04-30 18:30] LABS: ALB/GLOB Ratio 1.3 RATIO (0.9-2.4); AST(SGOT) 13 U/L (15-37); Alanine Aminotransfer ALT/SGPT 24 U/L (13-56); Albumin, Serum 3.8 g/dL (3.2-5.0); Alkaline Phosphatase 78 U/L (45-117); Anion Gap 6 (5-15); BUN 14 mg/dL (7-18); BUN/Creat Ratio 19.3 RATIO (10-20); CRP 5.18 mg/L (0.0-3.0); Calcium,Total 8.9 mg/dL (8.5-10.1); Chloride 104 mmol/L (98-107); Cholesterol 156 mg/dL (200); Creatinine, Serum 0.72 mg/dL (0.55-1.02); EST Glomerular Filtration Rate 85 mL/min (>60); Est Glom Filt Rate - Afr Amer 103 mL/min (>60); Glucose 91 mg/dL (74-106); High Density Lipoprotein 60 mg/dL; Potassium 3.5 mmol/L (3.5-5.1); Protein, Total 6.8 g/dL (6.4-8.2); Sodium Level 140 mmol/L (136-145); Triglycerides 102 mg/dL; Very Low Density Lipoprotein 20 mg/dL (5-40)
== END | disposition home or self-care (01) ==
PROVIDERS: PCP Family Medicine; Referring Provider Internal Medicine Gastroenterology; Visit Provider Internal Medicine Gastroenterology
DX: K50.90 Crohn's disease, unspecified, without complications (principal); R03.0 Elevated blood-pressure reading, without diagnosis of hypertension
CPT/HCPCS: 36415; 80053; 80061; 85027; 85652; 86140

== ENCOUNTER → 2024-06-29 | Outpatient (CLI) | payer BC, SELFPAY ==
--- NOTE | 2024-06-29 07:02 | BI_ITS ---
MAMMOGRAPHY - BILATERAL SCREENING REASON FOR EXAM: Female, 69 years old. Routine annual screening examination. PERTINENT HISTORY: Non-contributory. TECHNIQUE: Digital bilateral breast leonard (3D mammographic acquisition) in the CC and MLO projections. 2-D mediolateral oblique (MLO) and craniocaudad (CC) views of both breasts were obtained. CAD: Full Field Digital Mammography with Computer Added Detection was performed. COMPARISON: Comparison is made with prior study dated June 22, 2023 and April 23, 2022. FINDINGS: Breast Composition: There are scattered areas of fibroglandular density. There are no dominant masses or suspicious calcifications. Stable small benign-appearing bilateral axillary lymph nodes. No other significant abnormalities are identified. There has been no significant change since the prior study. BI/SCRN MAMM (CAD)W/LEONARD BILAT IMPRESSION: Stable bilateral screening mammogram. Yearly follow-up mammogram recommended. (A) ASSESSMENT CATEGORY: BIRADS Category 2: Benign. A letter regarding these results will be sent to the patient by the facility within 30 days. Approximately 10% of breast cancers are not detected by mammography. A normal mammogram should not delay biopsy of a clinically suspicious abnormality. [id number] Electronically Signed: Nixon Leonardo MD at 9:02 EDT ,
== END | disposition home or self-care (01) ==
LOC: OPBI 07:00
PROVIDERS: PCP Family Medicine; Referring Provider Obstetrics & Gynecology; Visit Provider Obstetrics & Gynecology
DX: Z12.31 Encounter for screening mammogram for malignant neoplasm of breast (principal)
CPT/HCPCS: 77063; 77067

== ENCOUNTER → 2024-10-18 | Outpatient (CLI) | payer BC, SELFPAY ==
[2024-10-18 12:56] LABS: Vitamin D,25 Hydroxy 38.6 ng/mL
[2024-10-18 13:07] LABS: ALB/GLOB Ratio 1.1 RATIO (0.9-2.4); AST(SGOT) 15 U/L (15-37); Alanine Aminotransfer ALT/SGPT 22 U/L (13-56); Albumin, Serum 3.7 g/dL (3.2-5.0); Alkaline Phosphatase 84 U/L (45-117); Anion Gap 7 (5-15); BUN 11 mg/dL (7-18); BUN/Creat Ratio 16.6 RATIO (10-20); Calcium,Total 9.4 mg/dL (8.5-10.1); Chloride 108 mmol/L (98-107); Creatinine, Serum 0.66 mg/dL (0.55-1.02); EST Glomerular Filtration Rate 95 mL/min (>60); Est Glom Filt Rate - Afr Amer 114 mL/min (>60); Globulin 3.4 g/dL (2.2-4.2); Glucose 99 mg/dL (74-106); Potassium 3.7 mmol/L (3.5-5.1); Protein, Total 7.1 g/dL (6.4-8.2); Sodium Level 141 mmol/L (136-145); T4 Free Direct 1.12 ng/dL (0.76-1.46); Thyroid Stim Hormone (TSH) 0.363 uIU/mL (0.358-3.740)
== END | disposition home or self-care (01) ==
PROVIDERS: PCP Family Medicine; Referring Provider Internal Medicine Endocrinology, Diabetes & Metabolism; Visit Provider Internal Medicine Endocrinology, Diabetes & Metabolism
DX: E55.9 Vitamin D deficiency, unspecified (principal); M81.0 Age-related osteoporosis without current pathological fracture
CPT/HCPCS: 36415; 80053; 82306; 84439; 84443

== ENCOUNTER 2024-11-09 09:03 | Outpatient (CLI) | payer BC, SELFPAY ==
[2024-11-09 09:19] VITALS: BP 146/63; PULSE 69; RESP 16; TEMP 36.2; O2SAT 100; BMI 31.2
[2024-11-09] MEDS: 0.9% NaCl Peripheral Flush Adult/Peds IV (09:23)
[2024-11-09] MEDS: Zoledronic Acid 5 MG 100 ML 300 MG IV (09:25)
[2024-11-09] MEDS: 0.9% Normal Saline (100mL Bag) 100 ML 15 ML IV (09:25)
[2024-11-09 10:03] VITALS: BP 150/67; PULSE 70; RESP 16; TEMP 36.3; O2SAT 99
== END 2024-11-09 23:59 | disposition home or self-care (01) ==
LOC: MEDOUTP 09:03
PROVIDERS: PCP Family Medicine; Referring Provider Internal Medicine Endocrinology, Diabetes & Metabolism; Visit Provider Internal Medicine Endocrinology, Diabetes & Metabolism
DX: M81.0 Age-related osteoporosis without current pathological fracture (principal)
CPT/HCPCS: 96365; A4216; J3489

== ENCOUNTER → 2025-02-19 | Outpatient (CLI) | payer BC, SELFPAY ==
[2025-02-19 18:23] LABS: Hematocrit 42.6 % (37-47); Hemoglobin 13.9 g/dL (12.0-15.0); Mean Corp Hgb Conc 32.6 g/dL (32-36); Mean Corpuscular Hgb 30.4 pg (27.0-32.0); Mean Corpuscular Volume 93.2 fL (81-99); Mean Platelet Vol. 9.8 fl (6.2-12.0); Platelet Count 296 K/mm3 (150-450); RBC Distribution Width CV 12.8 % (11.6-14.6); RBC Distribution Width SD 43.8 fl (35.1-43.9); Red Blood Count 4.57 M/mm3 (4.2-5.4); White Blood Count 8.7 K/mm3 (4.4-11.0)
[2025-02-19 18:38] LABS: ALB/GLOB Ratio 1.6 RATIO (0.9-2.4); AST(SGOT) 21 U/L (<=31); Alanine Aminotransfer ALT/SGPT 20 U/L (<=34); Albumin, Serum 4.2 g/dL (3.4-4.8); Alkaline Phosphatase 89 U/L (35-104); Anion Gap 10 (5-15); BUN 10 mg/dL (4-19); CRP 3.51 mg/L (0.0-3.0); Calcium,Total 9.4 mg/dL (7.6-11.0); Carbon Dioxide 28.9 mmol/L (21.0-32.0); Chloride 104 mmol/L (98-108); Creatinine, Serum 0.77 mg/dL (0.70-1.20); EST Glomerular Filtration Rate 85 (>60); Globulin 2.6 g/dL (2.2-4.2); Glucose 85 mg/dL (70-99); Potassium 3.5 mmol/L (3.3-5.1); Protein, Total 6.7 g/dL (5.9-8.4); Sodium Level 143 mmol/L (133-145); Total Bilirubin 0.27 mg/dL (0.00-1.30)
== END | disposition home or self-care (01) ==
LOC: MTLAB 14:39
PROVIDERS: PCP Family Medicine; Referring Provider Internal Medicine Gastroenterology; Visit Provider Internal Medicine Gastroenterology
DX: K50.90 Crohn's disease, unspecified, without complications (principal)
CPT/HCPCS: 36415; 80053; 85027; 86140

== ENCOUNTER → 2025-07-02 | Outpatient (CLI) | payer BC, SELFPAY ==
--- NOTE | 2025-07-02 07:25 | BI_ITS ---
EXAM: SCRN MAMM (CAD)W/LEONARD BILAT DATE: 07/02/2025 CLINICAL HISTORY: F, Age 70 y/o , SCREENING No family history. TECHNIQUE: Procedure Code: [id number] Modality: MG Procedure: SCRN MAMM (CAD)W/LEONARD BILAT COMPARISON: Prior exam(s) dated June 29, 2024.. FINDINGS: TISSUE DENSITY: There are scattered areas of fibroglandular density. Bilateral Breast Mammographic Findings: No significant masses, calcifications or other abnormalities are identified. Stable small benign-appearing bilateral axillary lymph nodes. Stable 7.9 mm well-defined nodule in the anterior upper lateral aspect of the left breast suggestive of a small lymph node. No suspicious masses, areas of developing architectural distortion, or suspicious calcifications. There has been no significant interval change. BI/SCRN MAMM (CAD)W/LEONARD BILAT IMPRESSION: Stable bilateral screening mammograms. OVERALL FINAL ASSESSMENT BI-RADS 2: BENIGN RECOMMENDATION: Routine annual follow-up in 1 Year A letter with findings and recommendations will be mailed to the patient. Reading Location: [place] [address]
--- OUTSIDE RECORDS SUMMARY | 2025-07-02 07:46 | XMS RPT_ITS | CCD ---
Author Organization [facility] Care Team Providers Care Enamel Finisher Name Role Phone Dr. Davy Green Primary Care Provider Dr. Davy Green Referring Provider YECENIA Gtz Attending Provider [phone] Dr. Davy Green Primary Care Provider Dr. Davy Green Referring Provider [phone] Teddy Alvarenga Attending Provider Davy Green MD Primary Care Provider Norma SOLANO, Dr. Bhatti Primary Care Provider [phone] Dr. Teddy Alvarenga MD Attending Provider [phone] King XIOMARA, Dr. Espinal Referring Provider Norma SOLANO, Dr. Bhatti Other Provider Dr. Mando Zarco MD Attending Provider Haroldo SOLANO, Dr. Gilmore Referring Provider King XIOMARA, Dr. Espinal Other Provider Davy Green MD Primary Care Provider Davy Green Referring Unavailable Teddy Alvarenga Attending Unavailable Davy Green Primary Care Unavailable Douglas Montero Attending Unavailable Douglas Montero Referring Unavailable Davy Green Primary Care Unavailable Teddy Alvarenga Attending Unavailable Teddy Alvarenga Referring Unavailable Davy Green Primary Care Unavailable Teddy Alvarenga Attending Unavailable Teddy Alvarenga Referring Unavailable Davy Green Primary Care Unavailable Davy Green Consulting Unavailable Davy Green Primary Care Unavailable Mando Zarco Attending Unavailable Mando Zarco Referring Unavailable Teddy Alvarenga Consulting Unavailable Davy Green Primary Care Unavailable Haury, Selma Attending Unavailable Selma Earl Referring Unavailable Allergies Allergy Classification Reported Allergen(s) Allergy Type Date of Onset Reaction(s) Facility (2 sources) Amoxicillin / Clavulanate Drug Allergy 01-11-2022 Rash [facility] Medications Current Medications Medication Drug Class(es) Dates Sig (Normalized) Sig (Original) lisinopril 40 mg oral tablet (15 sources) Angiotensin Converting Enzyme Inhibitor Start: 10-08-2024 take 1 tablet by mouth once daily Lisinopril 40 mg tablet Active 40 mg PO daily October 08, 2024 1:00am Start: 05-10-2024 take 1 tablet by mouth once li sinopril (ZESTRIL) 20 mg tablet Take 1 tablet by mouth every afternoon. 05/10/2024 Active Start: 08-17-2023 End: 10-08-2024 take 1 tablet by mouth once daily Lisinopril 10 mg tablet Discontinued 10 mg PO daily October 08, 2024 1:00am October 08, 2024 1:16pm Start: 04-20-2023 End: 08-17-2023 take 1 tablet by mouth once daily Lisinopril 2.5 mg tablet Discontinued 2.5 mg PO DAILY April 20, 2023 12:00am August 17, 2023 4:32pm rosuvastatin calcium 5 mg oral tablet (6 sources) HMG-CoA Reductase Inhibitor Start: 08-17-2023 take 1 tablet by mouth once daily Rosuvastatin 5 mg tablet Active 5 mg PO DAILY August 17, 2023 12:00am 0.5 ml ustekinumab 90 mg/ml prefilled syringe (18 sources) Interleukin-12 Antagonist, Interleukin-23 Antagonist Start: 08-17-2023 Ustekinumab (Stelara) 45 mg/0.5 mL syringe Active 90 mg SC every 8 weeks August 17, 2023 4:32pm Start: 12-07-2021 STELARA 90 mg/ mL injection 12/07/2021 Active Start: 10-16-2021 End: 08-17-2023 Ustekinumab (Stelara) 45 mg/ 0.5 mL syringe Discontinued 45 mg SC every 12 weeks October 16, 2021 1:00am August 17, 2023 4:33pm 100 ml zoledronic acid 0.05 mg/ml injection (7 sources) Bisphosphonate Start: 10-07-2023 zoledronic aci d (RECLAST) 5 mg/100 mL PREMIX piggyback Zoledronic Cbuj-Mzeupblu-Jcvkb Active 1 EACH .Route ONCE October 07, 2023 12:00am infuse over 20 minutes 10/07/2023 Active Start: 10-07-2023 End: 10-08-2024 Zoledronic Mwiz-Xzfbkslz-Pnq er 5 mg/100 mL piggyback Active 1 NMA .Route ONCE October 08, 2024 10:58am infuse over 20 minutes Completed/Discontinued Medications Medication Drug Class(es) Dates Sig (Normalized) Sig (Original) azithromycin 250 mg oral tablet (12 sources) Macrolide Antimicrobial Start: 10-16-2021 End: 08-17-2023 take 2-5 tablets by mouth once daily Azithromycin 250 mg tablet Discontinued 0 PO .COMPLEX October 16, 2021 1:00am August 17, 2023 4:32pm take 500 mg today (day 1), then 250 mg for 4 days (days 2-5) PO budesonide 3 mg delayed release oral capsule (1 source) Corticosteroid End: 05-29-2024 take 1 capsule by mouth once daily, then take 3 mg by mouth every twenty-four hours budesonide, enteric coated (ENTOCORT EC) 3 mg 24 hr capsule Take 6 mg by mouth once daily. 0 05/29/2024 Discontinued (Other) cephalexin 500 mg oral capsule (7 sources) Cephalosporin Antibacterial Start: 04-20-2023 End: 04-30-2023 take 1 capsule by mouth every twelve hours Cephalexin 500 mg capsule Discontinued 500 mg PO Q12H 20 April 20, 2023 12:00am April 29, 2023 12:00am April 30, 2023 12:12am LACTOBACILLUS COMBO NO.6 (PROBIOTIC COMPLEX ORAL) (1 source) End: 05-29-2024 LACTOBACILLUS COMBO NO.6 (PROBIOTIC COMPLEX ORAL) Take by mouth. 0 05/29/2024 Discontinued (Other) ondansetron 4 mg disintegrating oral tablet (1 source) Serotonin-3 Receptor Antagonist Start: 12-08-2014 End: 05-29-2024 take 1 tablet by mouth every six hours as needed ondansetron orally disintegrating (ZOFRAN ODT) 4 mg disintegrating tablet Take 1 tablet by mouth every 6 hours as needed for Nausea/Vomiting. 10 tablet 0 12/08/2014 05/29/2024 Discontinued (Other) triamcinolone acetonide 1 mg/ml topical cream (3 sources) Corticosteroid Start: 12-08-2014 End: 05-29-2024 triamcinolone acetonide (KENALOG) 0.1 % cream Apply 1 application to affected area three times daily. Apply to affected area. 30 g 0 12/08/2014 05/29/2024 Discontinued (Other) triamcinolone ac etonide (NASACORT ALLERGY NASAL) Use in the nose. Active triamcinolone ac etonide (NASACORT ALLERGY NASAL) Use in the nose. 0 Active Problems Active Problems Problem Classification Problem Date Documented Da te Episodic/Chronic Essential hypertension (8 sources) Hypertensive disorder; Translations: [Essential (primary) hypertension] Onset: 10-08-2024 04-20-2023 Chronic Nutritional deficiencies (1 source) Vitamin D deficiency, unspecified; Translations: [Vitamin D deficiency, unspecified] Onset: 11-15-2024 Chronic Osteoporosis (8 sources) Osteoporosis; Translations: [Age-related osteoporosis without current pathological fracture] Onset: 12-03-2024 10-07-2023 Chronic Other screening for suspected conditions (not mental disorders or infectious disease) (4 sources) Patient encounter status; Translations: [Encounter for screening mammogram for malignant neoplasm of breast] Onset: 07-09-2024 05-29-2024 Episodic Other upper respiratory infections (16 sources) Acute sinusitis; Translations: [Acute sinusitis, unspecified] Episodic Regional enteritis and ulcerative colitis (1 source) Crohn's disease, unspecified, without complications; Translations: [Crohn's disease, unspecified, without complications] Onset: 02-25-2025 Chronic Past or Other Problems Problem Classification Problem Date Documented Da te Episodic/Chronic Unclassified (1 source) Patient encounter status 06-14-2025 Results Test Name Value Interpretation Reference Range Facility [facility] 06-13-2025 [facility] Telephone (OBGYWM) ---- SEFERINO HANNAH ([id number]) 1955 F Date Time Provider Department 06/13/25 DOUGLAS MONTERO OBGYWRuperto During your visit today, we recorded the following information about you: Angelica Mares 06/13/2025 10:[address] [facility] Mammography order and fax to the [facility] as patient is due after 06/29/2025 Nicolette Paulson, JOHN 06/13/2025 11:05 AM Signed Order pended. JOHN Hernandez Jennifer, RN 06/14/2025 12:22 PM Signed Epic order faxed to [facility]. Amanda Gann RN Allergies As of Date: 06/13/2025 Noted Allergy Reaction AMOXICILLIN-POT CLAVULANATE 01/11/2022 2 - Rash Comments: Rash/swelling Date Reviewed: 05/29/2024 Reviewed by: Douglas Montero MD - Fully Assessed Reason for Visit: Orders [681] Primary Visit Diagnosis:Encounter for screening mammogram for malignant neoplasm of breast [Z12.31] Order(s):MYLENE SCREENING W KHALIF [[id number]] Order #: [id number] FUTURE Prescriptions as of 06/14/2025 - zoledronic acid (RECLAST) 5 mg/100 mL PREMIX piggyback Zoledronic Tcmt-Jnaweunw-Qxzwy Active 1 EACH .Route ONCE 100 October 07, 2023 12:00am infuse over 20 minutes - STELARA 90 mg/mL injection - lisinopril (ZESTRIL) 20 mg tablet Take 1 tablet by mouth every afternoon. - rosuvastatin (CRESTOR) 5 mg tablet Take 5 mg by mouth once daily. - triamcinolone acetonide (NASACORT ALLERGY NASAL) Use in the nose. Problem List As Of Date: 06/13/2025 (None) Encounter Status:Closed by AMANDA GANN on 06/14/25 Normal [facility] Anion gap in Serum or Plasma Ordered By: Mando Zarco on 02-19-2025 Anion gap [Moles/Vol] 10 mmol/L 03-14 [facility] BUN/creatinine ratioOrdered By: Mando Zarco on 02-19-2025 Urea nitrogen/Creatinine [Mass ratio] 13.0 mg/mg 10-20 [facility] Bilirubin, totalOrdered By: Mando Zarco on 02-19-2025 Bilirubin [Mass/Vol] 0.27 mg/dL 0.00-1.30 [facility] CBC-Complete Blood Cnt No Di ffon 02-19-2025 Erythrocyte distribution width (RBC) [Ratio] 12.8 % Normal 11.6-14.6 [facility] Comment on above: Performed By: #### L [id number], [id number], L100.0500 #### [facility] [address] [place], [address] Hematocrit (Bld) [Volume fraction] 42.6 % Normal 37-47 [facility] Comment on above: Performed By: #### L [id number], [id number], L100.0500 #### [facility] [address] [place], [address] Hemoglobin (Bld) [Mass/Vol] 13.9 g/dL Normal 12.0-15.0 [facility] Comment on above: Performed By: #### L [id number], [id number], L100.0500 #### [facility] [address] [place], [address] MCH (RBC) [Entitic mass] 30.4 pg Normal 27.0-32.0 [facility] Comment on above: Performed By: #### L [id number], [id number], L100.0500 #### [facility] [address] [place], [address] MCHC (RBC) [Mass/Vol] 32.6 g/dL Normal 32-36 [facility] Comment on above: Performed By: #### L [id number], [id number], L100.0500 #### [facility] [address] [place], [address] MCV (RBC) [Entitic vol] 93.2 fL Normal 81-99 [facility] Comment on above: Performed By: #### L [id number], [id number], [id number] #### [facility] [address] [place], [address] Platelet mean volume (Bld) [Entitic vol] 9.8 fL Normal 6.2-12.0 [facility] Comment on above: Performed By: #### L [id number], [id number], L100.0500 #### [facility] [address] [place], [address] Platelets (Bld) [#/Vol] 296 10*3/uL Normal 150-450 [facility] Comment on above: Performed By: #### L [id number], [id number], L100.0500 #### [facility] [address] [place], [address] RBC (Bld) [#/Vol] 4.57 10*6/uL Normal 4.2-5.4 [facility] Comment on above: Performed By: #### L [id number], [id number], L100.0500 #### [facility] [address] [place], [address] RDW SD 43.8 fl Normal 35.1-43.9 [facility] Comment on above: Performed By: #### L [id number], [id number], [id number] #### [facility] [address] [place], [address] WBC (Bld) [#/Vol] 8.7 10*3/uL Normal 4.4-11.0 [facility] Comment on above: Performed By: #### L [id number], [id number], L100.0500 #### [facility] [address] [place], [address] CRPon 02-19-2025 C-REACTIVE PROT 3.51 mg/L High 0.0-3.0 [facility] Comment on above: Performed By: #### L [id number], [id number], L100.0500 #### [facility] [address] [place], [address] CRP [Mass/Vol]Ordered By: Tanya Zarco on 02-19-2025 C-Reactive Protein Extended Range 3.51 mg/L High 0.0-3.0 [facility] Carbon dioxide, total [Moles /volume] in Central venous bloodOrdered By: Mando Zarco on 02-19-2025 CO2 [Moles/Vol] 28.9 mmol/L 21.0-32.0 [facility] Chloride assayOrdered By: Tanya Zarco on 02-19-2025 Chloride [Moles/Vol] 104 mmol/L 98-108 [facility] Comprehensive Metabolic Prof ilon 02-19-2025 Albumin [Mass/Vol] 4.2 g/dL Normal 3.4-4.8 [facility] Comment on above: Performed By: #### L [id number], [id number], [id number] #### [facility] [address] [place], [address] Albumin/Globulin [Mass ratio] 1.6 {ratio} Normal 0.9-2.4 [facility] Comment on above: Performed By: #### L [id number], [id number], L100.0500 #### [facility] [address] [place], [address] ALK PHOS 89 U/L Normal 35-104 [facility] Comment on above: Performed By: #### L [id number], [id number], L100.0500 #### [facility] [address] [place], [address] ALT [Catalytic activity/Vol] 20 U/L Normal <=34 [facility] Comment on above: Performed By: #### L [id number], [id number], L100.0500 #### [facility] [address] [place], [address] AST [Catalytic activity/Vol] 21 U/L Normal <=31 [facility] Comment on above: Performed By: #### L [id number], [id number], L100.0500 #### [facility] [address] [place], [address] Bilirubin [Mass/Vol] 0.27 mg/dL Normal 0.00-1.30 [facility] Comment on above: Performed By: #### L 501.6710, [id number], L100.0500 #### [facility] [address] [place], [address] BUN/CRE 13.0 RATIO Normal 10-20 [facility] Comment on above: Performed By: #### L 501.6710, [id number], L100.0500 #### [facility] [address] [place], [address] Calcium [Mass/Vol] 9.4 mg/dL Normal 7.6-11.0 [facility] Comment on above: Performed By: #### L [id number], [id number], L100.0500 #### [facility] [address] [place], [address] Chloride [Moles/Vol] 104 mmol/L Normal 98-108 [facility] Comment on above: Performed By: #### L 501.6710, [id number], L100.0500 #### [facility] [address] [place], [address] CO2 [Moles/Vol] 28.9 mmol/L Normal 21.0-32.0 [facility] Comment on above: Performed By: #### L 501.6710, [id number], L100.0500 #### [facility] [address] [place], [address] Creatinine [Mass/Vol] 0.77 mg/dL Normal 0.70-1.20 [facility] Comment on above: Performed By: #### L 501.6710, [id number], L100.0500 #### [facility] [address] [place], [address] GAP 10 Normal 5-15 [facility] Comment on above: Performed By: #### L 501.6710, [id number], L100.0500 #### [facility] [address] [place], [address] GFR/1.73 sq M.predicted among non-blacks MDRD (S/P/Bld) [Vol rate/Area] 85 mL/min/{1.73_m2} Normal >60 [facility] Comment on above: Result Comment: mL/m in/1.73m2 CKD-EPI Creatinine Equation (2020) Performed By: #### L 501.6710, [id number], L100.0500 #### [facility] [address] [place], [address] Globulin (S) [Mass/Vol] 2.6 g/dL Normal 2.2-4.2 [facility] Comment on above: Performed By: #### L 501.6710, [id number], L100.0500 #### [facility] [address] [place], [address] Glucose [Mass/Vol] 85 mg/dL Normal 70-99 [facility] Comment on above: Performed By: #### L 501.6710, [id number], L100.0500 #### [facility] [address] [place], [address] Potassium [Moles/Vol] 3.5 mmol/L Normal 3.3-5.1 [facility] Comment on above: Performed By: #### L 501.6710, [id number], L100.0500 #### [facility] [address] [place], [address] Sodium [Moles/Vol] 143 mmol/L Normal 133-145 [facility] Comment on above: Performed By: #### L 501.6710, [id number], L100.0500 #### [facility] [address] [place], [address] T PROT 6.7 g/dL Normal 5.9-8.4 [facility] Comment on above: Performed By: #### L 501.6710, [id number], L100.0500 #### [facility] [address] [place], [address] Urea nitrogen [Mass/Vol] 10 mg/dL Normal 4-19 [facility] Comment on above: Performed By: #### L [id number], [id number], L100.0500 #### [facility] [address] [place], [address] Erythrocyte distribution wid th (RBC) [Ratio]Ordered By: Mando Zarco on 02-19-2025 Erythrocyte distribution width (RBC) [Entitic vol] 43.8 fL 35.1-43.9 [facility] Erythrocyte distribution wid th ratioOrdered By: Mando Zarco on 02-19-2025 Erythrocyte distribution width (RBC) [Ratio] 12.8 % 11.6-14.6 [facility] GFR/1.73 sq M.predicted lenard g non-blacks MDRD (S/P/Bld) [Vol rate/Area]Ordered By: Mando Zarco on 02-19-2025 Estimated GFR (MDRD) Non-Af Amer 85 >60 [facility] Comment on above: mL/min/1.73m2 CKD-EP I Creatinine Equation (2020) Hematocrit Auto (Bld) [Volum e fraction]Ordered By: Mando Zarco on 02-19-2025 Hematocrit (Bld) [Volume fraction] 42.6 % 37-47 [facility] Hemoglobin measurementOrdere d By: Mando Zarco on 02-19-2025 Hemoglobin (Bld) [Mass/Vol] 13.9 g/dL 12.0-15.0 [facility] - Chemistry and C hemistry - challengeOrdered By: Mando Zarco on 02-19-2025 AST [Catalytic activity/Vol] 21 U/L <32 [facility] MCV (mean corpuscular volume ) determinationOrdered By: Mando Zarco on 02-19-2025 MCV (RBC) [Entitic vol] 93.2 fL 81-99 [facility] Mean corpuscular hemoglobin (MCH) determinationOrdered By: Mando Zarco on 02-19-2025 MCH (RBC) [Entitic mass] 30.4 pg 27.0-32.0 [facility] Mean corpuscular hemoglobin concentration (MCHC) determinationOrdered By: Mando Zarco on 02-19-2025 MCHC (RBC) [Mass/Vol] 32.6 g/dL 32-36 [facility] Mean platelet volume determi nationOrdered By: Mando Zarco on 02-19-2025 Platelet mean volume (Bld) [Entitic vol] 9.8 fL 6.2-12.0 [facility] Platelet countOrdered By: Tanya Zarco on 02-19-2025 Platelets (Bld) [#/Vol] 296 10*3/uL 150-450 [facility] Potassium (Unsp spec) [Mass/ Vol]Ordered By: Mando Zarco on 02-19-2025 Potassium [Moles/Vol] 3.5 mmol/L 3.3-5.1 [facility] RBC Auto (Bld) [#/Vol]Ordere d By: Mando Zarco on 02-19-2025 RBC (Bld) [#/Vol] 4.57 10*6/uL 4.2-5.4 [facility] Serum creatinine measurement (mass/volume)Ordered By: Mando Zarco on 02-19-2025 Creatinine [Mass/Vol] 0.77 mg/dL 0.70-1.20 [facility] Serum globulin measurementOr dered By: Mando Zarco on 02-19-2025 Globulin (S) [Mass/Vol] 2.6 g/dL 2.2-4.2 [facility] Serum glucose measurement (m ass/volume)Ordered By: Mando Zarco on 02-19-2025 Glucose [Mass/Vol] 85 mg/dL 70-99 [facility] Serum or plasma alanine rodriguez otransferase (ALT) measurementOrdered By: Mando Zarco on 02-19-2025 ALT [Catalytic activity/Vol] 20 U/L <35 [facility] Serum or plasma albumin franca urement (mass/volume)Ordered By: Mando Zarco on 02-19-2025 Albumin [Mass/Vol] 4.2 g/dL 3.4-4.8 [facility] Serum or plasma albumin/glob ulin mass ratioOrdered By: Mando Zarco on 02-19-2025 Albumin/Globulin [Mass ratio] 1.6 {ratio} 0.9-2.4 [facility] Serum or plasma alkaline byron sphatase measurementOrdered By: Mando Zarco on 02-19-2025 ALP [Catalytic activity/Vol] 89 U/L 35-104 [facility] Serum or plasma calcium franca urement (mass/volume)Ordered By: Mando Zarco on 02-19-2025 Calcium [Mass/Vol] 9.4 mg/dL 7.6-11.0 [facility] Serum or plasma urea nitroge n measurement (mass/volume)Ordered By: Mando Zarco on 02-19-2025 Urea nitrogen [Mass/Vol] 10 mg/dL 4-19 [facility] Sodium levelOrdered By: Safia Zarco on 02-19-2025 Sodium [Moles/Vol] 143 mmol/L 133-145 [facility] Total proteinOrdered By: Micheal Zarco on 02-19-2025 Protein [Mass/Vol] 6.7 g/dL 5.9-8.4 [facility] White blood cell (WBC) count Ordered By: Mando Zarco on 02-19-2025 WBC (Bld) [#/Vol] 8.7 10*3/uL 4.4-11.0 [facility] Comprehensive Metabolic Prof sunshine 10-18-2024 Albumin [Mass/Vol] 3.7 g/dL Normal 3.2-5.0 [facility] Comment on above: Performed By: #### L 506.1000, L501.9520, L506.0400, L500.4050 #### [facility] [address] [place], [address] Albumin/Globulin [Mass ratio] 1.1 {ratio} Normal 0.9-2.4 [facility] Comment on above: Performed By: #### L 506.1000, L501.9520, L506.0400, L500.4050 #### [facility] [address] [place], [address] ALK P 84 U/L Normal 45-117 [facility] Comment on above: Performed By: #### L 506.1000, [id number], L506.0400, L500.4050 #### [facility] [address] [place], [address] ALT [Catalytic activity/Vol] 22 U/L Normal 13-56 [facility] Comment on above: Performed By: #### L 506.1000, L501.9520, L506.0400, L500.4050 #### [facility] [address] [place], [address] AST [Catalytic activity/Vol] 15 U/L Normal 15-37 [facility] Comment on above: Performed By: #### L 506.1000, L501.9520, L506.0400, L500.4050 #### [facility] [address] [place], [address] Bilirubin [Mass/Vol] 0.40 mg/dL Normal 0.20-1.00 [facility] Comment on above: Result Comment: For patients on eltrombopag therapy, use of Dimension [place] TBIL is not recommended. Performed By: #### L 506.1000, L501.9520, L506.0400, L500.4050 #### [facility] [address] [place], [address] BUN/CRE 16.6 RATIO Normal 10-20 [facility] Comment on above: Performed By: #### L 506.1000, L501.9520, L506.0400, L500.4050 #### [facility] [address] [place], [address] CA,Total 9.4 mg/dL Normal 8.5-10.1 [facility] Comment on above: Performed By: #### L 506.1000, L501.9520, L506.0400, L500.4050 #### [facility] [address] [place], [address] Chloride [Moles/Vol] 108 mmol/L High 98-107 [facility] Comment on above: Performed By: #### L 506.1000, L501.9520, L506.0400, L500.4050 #### [facility] [address] [place], [address] CO2 [Moles/Vol] 26.0 mmol/L Normal 21.0-32.0 [facility] Comment on above: Performed By: #### L 506.1000, L501.9520, L506.0400, L500.4050 #### [facility] [address] [place], [address] Creatinine [Mass/Vol] 0.66 mg/dL Normal 0.55-1.02 [facility] Comment on above: Result Comment: The validity of the calculated GFR GFRAA in patients over 70 years has not been determined. Clinical correlation is essential. Performed By: #### L 506.1000, L501.9520, L506.0400, L500.4050 #### [facility] [address] [place], [address] EST GFR - AA 114 mL/min Normal >60 [facility] Comment on above: Result Comment: Afri can [place] GFR Calc Performed By: #### L 506.1000, L501.9520, L506.0400, L500.4050 #### [facility] [address] [place], [address] GAP 7 Normal 5-15 [facility] Comment on above: Performed By: #### L 506.1000, L501.9520, L506.0400, L500.4050 #### [facility] [address] [place], [address] GFR/1.73 sq M.predicted among non-blacks MDRD (S/P/Bld) [Vol rate/Area] 95 mL/min/{1.73_m2} Normal >60 [facility] Comment on above: Result Comment: Non- GFR Calc Performed By: #### L 506.1000, L501.9520, L506.0400, L500.4050 #### [facility] [address] [place], [address] Globulin (S) [Mass/Vol] 3.4 g/dL Normal 2.2-4.2 [facility] Comment on above: Performed By: #### L 506.1000, L501.9520, L506.0400, L500.4050 #### [facility] [address] [place], [address] Glucose [Mass/Vol] 99 mg/dL Normal 74-106 [facility] Comment on above: Performed By: #### L 506.1000, L501.9520, L506.0400, L500.4050 #### [facility] [address] [place], [address] Potassium [Moles/Vol] 3.7 mmol/L Normal 3.5-5.1 [facility] Comment on above: Performed By: #### L 506.1000, L501.9520, L506.0400, L500.4050 #### [facility] [address] [place], [address] Sodium [Moles/Vol] 141 mmol/L Normal 136-145 [facility] Comment on above: Performed By: #### L 506.1000, L501.9520, L506.0400, L500.4050 #### [facility] [address] [place], [address] T PROT 7.1 g/dL Normal 6.4-8.2 [facility] Comment on above: Performed By: #### L 506.1000, L501.9520, L506.0400, L500.4050 #### [facility] [address] [place], [address] Urea nitrogen [Mass/Vol] 11 mg/dL Normal 7-18 [facility] Comment on above: Performed By: #### L 506.1000, L501.9520, L506.0400, L500.4050 #### [facility] [address] [place], [address] T4 Free Directon 10-18-2024 T4 FREE DIRECT 1.12 ng/dL Normal 0.76-1.46 [facility] Comment on above: Performed By: #### L 506.1000, L501.9520, L506.0400, L500.4050 #### [facility] [address] [place], [address] Thyroid Stim Hormone (TSH)on 10-18-2024 TSH 0.363 uIU/mL Normal 0.358-3.740 [facility] Comment on above: Performed By: #### L 506.1000, L501.9520, L506.0400, L500.4050 #### [facility] [address] [place], [address] Vitamin D,25 Hydroxyon 10-18 Vitamin D 25-OH 38.6 ng/mL Normal [facility] Comment on above: Result Comment: Amanda min D 25(OH) Status Range Deficiency <20 ng/mL (50nmol/L) Insufficiency 20 - 30 ng/mL (50 - 75 nmol/L) Sufficiency 30 - 100 ng/mL (75 - 250 nmol/L) Toxicity >100 ng/mL (>250 nmol/L) Performed By: #### L 506.1000, L501.9520, L506.0400, L500.4050 #### [facility] [address] [place], [address] Endocrinology Visit Reporton 10-08-2024 Endocrinology Visit Report [facility] [address] [facility] [address] [place], [place] [address] OFFICE VISIT Date of Service: 10/08/24 MR#: [id number] Acct: [id number] Name: SEFERINO HANNAH Britney Rep #: [id number] : 1955 Provider: Ruperto Palacio Age/Sex: 69/F Location: [facility] Status: Signed Intake Vital Signs 10/07/23 09:48 10/21/23 08:24 10/08/24 09:49 Height 5 ft 1 in 5 ft 5 ft Weight: 165 lb 8 oz BMI 32.3 BP 156/85 H Blood Pressure Location Rt brachial Position Sitting Pulse 79 Pulse Source Monitor Pulse Oximetry (%) 97 Oxygen Delivery Method room air Intake Visit Reasons: 1 Y FU Is patient in pain?: No Allergies No Known Allergies Allergy (Verified 10/21/23 08:23) Medications ???Medication ???Instructions ???Recorded ???Confirmed ???Type rosuvastatin 5 mg tablet 5 mg PO DAILY 08/17/23 10/08/24 History ustekinumab 45 mg/0.5 mL 90 mg subcut Q8W 08/17/23 10/08/24 History subcutaneous syringe (Stelara) lisinopril 10 mg tablet 10 mg PO QDAY #90 tabs 10/08/24 10/08/24 Rx zoledronic acid 5 mg/100 mL in 1 ea .Route ONCE #100 mL 10/08/24 10/08/24 Rx mannitol 5 %-water intravenous piggybck Have you fallen in the past year?: No PFSH Medical History Osteoporosis Pilonidal cyst High blood pressure Surgical History History of tubal ligation Family History Unknown Heart disease COPD (chronic obstructive pulmonary disease) Social History Smoking Status: Never smoker alcohol intake: current alcohol intake frequency: holidays/special occasions only Alcohol type: wine details: occasionally substance use type: does not use what type of physical activity do you participate in: none HPI HPI SEFERINO HANNAH, is a 69 F who presents to the office today for follow up. She has t-Score -3.2 in the right femoral neck. No history of fracture. History of renal stones. She received her first Reclast infusion one year ago. She did experience some flu-like symptoms. No falls or fractures. She is due for labs. Her blood pressure is consistently high. Current Symptoms: denies abdominal pain, muscle weakness or unsteady gait/balance Osteoporosis/Bone Results: Calcium Level 8.9 mg/dL (8.5-10.1) Albumin 3.8 g/dL (3.2-5.0) Parathyroid Hormone (Intact) 22.7 pg/mL (18.4-80.1) Vitamin D 25-Hydroxy 36.4 ng/mL ROS Const Constitutional: No fatigue, headache(s) or weight change Eyes Eyes: No change in vision ENT ENT: No abnormal hearing, dizziness/vertigo or headache(s) Cardio Cardiology: No chest pain at rest, chest pain with exertion, shortness of breath or palpitations Musc Musculoskeletal: No abnormal gait, joint pain or muscle weakness Neuro Neurology: No abnormal gait, abnormal hearing, unsteady gait/balance, dizziness or headache(s) Psych Psychiatric: No anxiety and No depression Ant/Lymp Hematologic/Lymphat ic: No easy bruising Resp Respiratory: No cough, hemoptysis or shortness of breath Gastro GI: No abdominal pain Genitourinary-Femal e: No blood in urine Skin Skin: No wounds Endo Endocrine: No fatigue or weight change Exam Const General: cooperative, healthy appearing, comfortable, no acute distress, well developed and not cushingoid Nutritional Appearance: well nourished Orientation: alert, awake and oriented x3 HENMT Head: normal to inspection Ears: hearing grossly normal bilaterally Nose: external nose normal Mouth: oral mucosae normal Eyes General: appearance normal, both eyes and all related structures Alignment and Position: alignment normal Periorbital: periorbital findings normal Eyelids: eyelids normal Conjunctivae: conjunctivae normal Neck Neck: normal visual inspection Neck mass: No Thyroid: thyroid normal Lymphatic: no lymphadenopathy noted Chest Chest palpation inspection: normal inspection of the chest Resp Effort Inspection: normal respiratory effort, able to speak in complete sentences, symmetric chest movement, no audible wheezes and no cough Auscultation: Bilateral: Clear to Auscultation Cardio Rate: regular rate Rhythm: regular rhythm Skin General: no rashes or lesions noted Neuro General: patient alert, patient awake and patient oriented x3 Cranial Nerves: CN's II-XI intact bilaterally Cognition: normal cognition Speech: speech normal Gait: normal gait Motor: muscle tone normal throughout Extrem General: no edema Psych Appearance: grossly normal Mental Status: mental status grossly normal Mood: congruent mood Affect: normal affect Speech and Movement: speech and mo (more content not included)... Normal [facility] SCRN MAMM (CAD)W/KHALIF BILATo n 06-29-2024 SCRN MAMM (CAD)W/KHALFI BILAT [facility] [address] [place], [place] [address] SCRN MAMM (CAD)W/KHALIF BILAT MR#: [id number] Acct: [id number] Name: SEFERINO HANNAH Britney Rep #: [id number] : 1955 F 69 From: Nixon heredia MD PCP: Dr. Davy Green MD Status: REG CLI Study: SCRN MAMM (CAD)W/KHALIF BILAT Date of Exam: 06/02 Exam# [id number] Ordering Dr: Douglas Montero MD -[id number] MAMMOGRAPHY - BILATERAL SCREENING REASON FOR EXAM: Female, 69 years old. Routine annual screening examination. PERTINENT HISTORY: Non-contributory. TECHNIQUE: Digital bilateral breast khalif (3D mammographic acquisition) in the CC and MLO projections. 2-D mediolateral oblique (MLO) and craniocaudad (CC) views of both breasts were obtained. CAD: Full Field Digital Mammography with Computer Added Detection was performed. COMPARISON: Comparison is made with prior study dated June 22, 2023 and April 23, 2022. FINDINGS: Breast Composition: There are scattered areas of fibroglandular density. There are no dominant masses or suspicious calcifications. Stable small benign-appearing bilateral axillary lymph nodes. No other significant abnormalities are identified. There has been no significant change since the prior study. BI/SCRN MAMM (CAD)W/KHALIF BILAT IMPRESSION: Stable bilateral screening mammogram. Yearly follow-up mammogram recommended. (A) ASSESSMENT CATEGORY: BIRADS Category 2: Benign. A letter regarding these results will be sent to the patient by the facility within 30 days. Approximately 10% of breast cancers are not detected by mammography. A normal mammogram should not delay biopsy of a clinically suspicious abnormality. [id number] Electronically Signed: Nixon Leonardo MD at 9:02 EDT , CC: Dr. Davy Green MD; Dr. Douglas Montero MD Inspector Plating: Signed Normal [facility] Basophil percentageOrdered B y: Davy Green on 11-18-2023 Chloride [Moles/Vol] 109 mmol/L 98-107 [facility] Cholesterol [Mass/Vol] 160 mg/dL <200 [facility] Comment on above: <200 mg/dL Desirable 200-240 mg/dL Borderline >240 mg/dL High Risk Glucose [Mass/Vol] 99 mg/dL 74-106 [facility] Potassium [Moles/Vol] 3.8 mmol/L 3.5-5.1 [facility] Sodium [Moles/Vol] 141 mmol/L 136-145 [facility] Triglyceride [Mass/Vol] 104 mg/dL <199 [facility] Comment on above: The drugs N-Acetylcy steine and Metamizole may falsely depress this assay.Serum Triglycerides Reference Interval Normal <150 mg/dL Borderline high 150 - 199 mg/dL High 200 - 499 mg/dL Very High > or = 500 mg/dL High density lipoprotein (HD L) measurementOrdered By: Davy Green on 11-18-2023 Cholesterol in HDL (Body fld) [Mass/Vol] 64 mg/dL >40 [facility] Comment on above: The drugs N-Acetylcy steine and Metamizole may falsely depress this assay. Reference Range HDL <40 mg/dL Low HDL Cholesterol HDL >or= 60 mg/dL High HDL Cholesterol Laboratory - Chemistry and C hemistry - challengeOrdered By: Davy Green on 11-18-2023 CO2 [Moles/Vol] 29.0 mmol/L 21.0-32.0 [facility] Urea nitrogen/Creatinine [Mass ratio] 11.8 mg/mg 10-20 [facility] Low density lipoprotein (LDL ) cholesterol measurementOrdered By: Davy Green on 11-18-2023 Cholesterol in LDL (Body fld) [Moles/Vol] 75 mg/dL 0-130 [facility] No Panel InformationOrdered By: Davy Green on 11-18-2023 Estimated GFR (MDRD) Amer 112 mL/min >60 [facility] Comment on above: GFR Calc Estimated GFR (MDRD) Non-Af Amer 93 mL/min >60 [facility] Comment on above: Non- GFR Calc Serum or plasma calcium franca urement (mass/volume)Ordered By: Davy Green on 11-18-2023 Calcium [Mass/Vol] 9.5 mg/dL 8.5-10.1 [facility] Serum or plasma creatinine m easurement (mass/volume)Ordered By: Davy Green on 11-18-2023 Creatinine [Mass/Vol] 0.68 mg/dL 0.55-1.02 [facility] Comment on above: The validity of the calculated GFR & GFRAA in patients over 70 years has not been determined. Clinical correlation is essential. Serum or plasma urea nitroge n measurement (mass/volume)Ordered By: Davy Green on 11-18-2023 Urea nitrogen [Mass/Vol] 8 mg/dL 7-18 [facility] Thin prep Papanicolaou smear with manual screeningOrdered By: Davy Green on 11-18-2023 Thin prep Papanicolaou smear with manual screening 3 5-15 [facility] Very low density lipoprotein (VLDL) cholesterol measurementOrdered By: Davy Green on 11-18-2023 Cholesterol in VLDL Calc [Moles/Vol] 21 mg/dL 5-40 [facility] No Panel InformationOrdered By: Teddy Alvarenga on 10-21-2023 Parathyroid Hormone (Intact) 22.7 pg/mL 18.4-80.1 [facility] Thyroid Stimulating Hormone (TSH) 0.30 uIU/mL 0.358-3.74 [facility] Vitamin D 25-Hydroxy 36.4 ng/mL [facility] Comment on above: Vitamin D 25(OH) Sta tus Range Deficiency <20 ng/mL (50nmol/L) Insufficiency 20 - 30 ng/mL (50 - 75 nmol/L) Sufficiency 30 - 100 ng/mL (75 - 250 nmol/L) Toxicity >100 ng/mL (>250 nmol/L) Basophil percentageOrdered B y: Davy Green on 05-23-2023 Bilirubin [Mass/Vol] 0.50 mg/dL 0.20-1.00 [facility] Comment on above: For patients on eltr ombopag therapy, use of Dimension [place] TBIL is not recommended. Chloride [Moles/Vol] 105 mmol/L 98-107 [facility] Cholesterol [Mass/Vol] 175 mg/dL <200 [facility] Comment on above: <200 mg/dL Desirable 200-240 mg/dL Borderline >240 mg/dL High Risk Glucose [Mass/Vol] 102 mg/dL 74-106 [facility] Comment on above: Fasting Glucose resu lt from 100 to 125 mg/dL suggests IMPAIRED HOMEOSTASIS per A.D.A. criteria. Potassium [Moles/Vol] 3.6 mmol/L 3.5-5.1 [facility] Protein [Mass/Vol] 6.8 g/dL 6.4-8.2 [facility] Sodium [Moles/Vol] 139 mmol/L 136-145 [facility] Triglyceride [Mass/Vol] 153 mg/dL <199 [facility] Comment on above: The drugs N-Acetylcy steine and Metamizole may falsely depress this assay.Serum Triglycerides Reference Interval Normal <150 mg/dL Borderline high 150 - 199 mg/dL High 200 - 499 mg/dL Very High > or = 500 mg/dL Laboratory - Chemistry and C hemistry - challengeOrdered By: Davy Green on 05-23-2023 ALP [Catalytic activity/Vol] 100 U/L 45-117 [facility] ALT [Catalytic activity/Vol] 26 U/L 13-56 [facility] CO2 [Moles/Vol] 30.0 mmol/L 21.0-32.0 [facility] Globulin (S) [Mass/Vol] 3.2 g/dL 2.2-4.2 [facility] Urea nitrogen/Creatinine [Mass ratio] 14.9 mg/mg 10-20 [facility] No Panel InformationOrdered By: Davy Green on 05-23-2023 Estimated GFR (MDRD) Amer 113 mL/min >60 [facility] Comment on above: GFR Calc Estimated GFR (MDRD) Non-Af Amer 93 mL/min >60 [facility] Comment on above: Non- GFR Calc Serum or plasma albumin franca urement (mass/volume)Ordered By: Davy Green on 05-23-2023 Albumin [Mass/Vol] 3.6 g/dL 3.2-5.0 [facility] Serum or plasma albumin/glob ulin mass ratioOrdered By: Davy Green on 05-23-2023 Albumin/Globulin [Mass ratio] 1.1 {ratio} 0.9-2.4 [facility] Serum or plasma calcium franca urement (mass/volume)Ordered By: Davy Green on 05-23-2023 Calcium [Mass/Vol] 9.0 mg/dL 8.5-10.1 [facility] Serum or plasma cholesterol in HDL measurement (mass/volume)Ordered By: Davy Green on 05-23-2023 Cholesterol in HDL [Mass/Vol] 62 mg/dL >40 [facility] Comment on above: The drugs N-Acetylcy steine and Metamizole may falsely depress this assay. Reference Range HDL <40 mg/dL Low HDL Cholesterol HDL >or= 60 mg/dL High HDL Cholesterol Serum or plasma cholesterol in VLDL measurement (mass/volume)Ordered By: Davy Green on 05-23-2023 Cholesterol in VLDL [Mass/Vol] 31 mg/dL 5-40 [facility] Serum or plasma creatinine m easurement (mass/volume)Ordered By: Davy Green on 05-23-2023 Creatinine [Mass/Vol] 0.67 mg/dL 0.55-1.02 [facility] Comment on above: The validity of the calculated GFR & GFRAA in patients over 70 years has not been determined. Clinical correlation is essential. Serum or plasma low density lipoprotein (LDL) cholesterol measurement (mass/volume)Ordered By: Davy Green on 05-23-2023 Cholesterol in LDL [Mass/Vol] 82 mg/dL 0-130 [facility] Serum or plasma urea nitroge n measurement (mass/volume)Ordered By: Davy Green on 05-23-2023 Urea nitrogen [Mass/Vol] 10 mg/dL 7-18 [facility] Thin prep Papanicolaou smear with manual screeningOrdered By: Davy Green on 05-23-2023 Thin prep Papanicolaou smear with manual screening 15 U/L 15-37 [facility] Thin prep Papanicolaou smear with manual screening 4 5-15 [facility] Absolute lymphocyte countOrd ered By: Mando Zarco on 04-26-2023 Lymphocytes Auto (Unsp spec) [#/Vol] 2.84 10*3/uL 0.83-4.51 [facility] Basophil percentageOrdered B y: Mando Zarco on 04-26-2023 Basophils/100 WBC (Bld) 0.6 % 0-1 [facility] Eosinophils/100 WBC (Bld) 2.1 % 0-5 [facility] Neutrophils (Bld) [#/Vol] 4.9 10*3/uL 2.0-7.7 [facility] Neutrophils/100 WBC (Bld) 57.4 % 47-70 [facility] WBC (Bld) [#/Vol] 8.6 10*3/uL 4.4-11.0 [facility] Blood erythrocytes count (nu mber/volume)Ordered By: Mando Zarco on 04-26-2023 RBC (Bld) [#/Vol] 4.48 10*6/uL 4.2-5.4 [facility] Blood hemoglobin measurement (mass/volume)Ordered By: Mando Zarco on 04-26-2023 Hemoglobin (Bld) [Mass/Vol] 13.5 g/dL 12.0-15.0 [facility] Blood lymphocytes/100 leukoc ytesOrdered By: Mando Zarco on 04-26-2023 Lymphocytes/100 WBC (Bld) 33.0 % 19-41 [facility] Blood monocytes/100 leukocyt esOrdered By: Mando Zarco on 04-26-2023 Monocytes/100 WBC (Bld) 6.3 % 0-10 [facility] Blood platelet mean volumeOr dered By: Mando Zarco on 04-26-2023 Platelet mean volume (Bld) [Entitic vol] 9.5 fL 6.2-12.0 [facility] Determination of erythrocyte mean corpuscular volume (MCV)Ordered By: Mando Zarco on 04-26-2023 MCV (RBC) [Entitic vol] 93.5 fL 81-99 [facility] Hematocrit Auto (Bld) [Volum e fraction]Ordered By: Mando Zarco on 04-26-2023 Hematocrit (Bld) [Volume fraction] 41.9 % 37-47 [facility] - Hematology and Cell countsOrdered By: Mando Zarco on 04-26-2023 Erythrocyte distribution width (RBC) [Entitic vol] 41.1 fL 35.1-43.9 [facility] Erythrocyte distribution width (RBC) [Ratio] 11.9 % 11.6-14.6 [facility] Immature granulocytes/100 WBC (Bld) 0.600 % 0.0-0.9 [facility] Comment on above: IG% - Immature Granu locytes (promyelocytes, myelocytes and metamyelocytes) > 1% indicates that a LEFT SHIFT is Present. MCH (RBC) [Entitic mass] 30.1 pg 27.0-32.0 [facility] Nucleated RBC/100 WBC (Bld) [Ratio] 0 % 0-5 [facility] MCHC Auto (RBC) [Mass/Vol]Or dered By: Mando Zarco on 04-26-2023 MCHC (RBC) [Mass/Vol] 32.2 g/dL 32-36 [facility] No Panel InformationOrdered By: Mando Zarco on 04-26-2023 C-Reactive Protein High Sensitivity 4.97 mg/L <3.00 [facility] Comment on above: Low Relative Risk of CVD <1.0 mg/L Average Relative Risk of CVD 1.0 - 3.0 mg/L High Relative Risk of CVD >3.0 mg/L Platelets bldOrdered By: Micheal Zarco on 04-26-2023 Platelets (Bld) [#/Vol] 372 10*3/uL 150-450 [facility] Basophil percentageOrdered B y: Dr. Green on 11-12-2022 Chloride [Moles/Vol] 106 mmol/L 98-107 [facility] Cholesterol [Mass/Vol] 182 mg/dL <200 [facility] Comment on above: <200 mg/dL Desirable 200-240 mg/dL Borderline >240 mg/dL High Risk Glucose [Mass/Vol] 88 mg/dL 74-106 [facility] Potassium [Moles/Vol] 4.1 mmol/L 3.5-5.1 [facility] Sodium [Moles/Vol] 142 mmol/L 136-145 [facility] Triglyceride [Mass/Vol] 108 mg/dL <199 [facility] Comment on above: The drugs N-Acetylcy steine and Metamizole may falsely depress this assay.Serum Triglycerides Reference Interval Normal <150 mg/dL Borderline high 150 - 199 mg/dL High 200 - 499 mg/dL Very High > or = 500 mg/dL Laboratory - Chemistry and C hemistry - challengeOrdered By: Dr. Green on 11-12-2022 CO2 [Moles/Vol] 28.0 mmol/L 21.0-32.0 [facility] Urea nitrogen/Creatinine [Mass ratio] 22.3 mg/mg 10-20 [facility] No Panel InformationOrdered By: Dr. Green on 11-12-2022 Estimated GFR (MDRD) Amer 113 mL/min >60 [facility] Comment on above: GFR Calc Estimated GFR (MDRD) Non-Af Amer 93 mL/min >60 [facility] Comment on above: Non- GFR Calc Serum or plasma calcium franca urement (mass/volume)Ordered By: Dr. Green on 11-12-2022 Calcium [Mass/Vol] 9.1 mg/dL 8.5-10.1 [facility] Serum or plasma cholesterol in HDL measurement (mass/volume)Ordered By: Dr. Green on 11-12-2022 Cholesterol in HDL [Mass/Vol] 70 mg/dL >40 [facility] Comment on above: The drugs N-Acetylcy steine and Metamizole may falsely depress this assay. Reference Range HDL <40 mg/dL Low HDL Cholesterol HDL >or= 60 mg/dL High HDL Cholesterol Serum or plasma cholesterol in VLDL measurement (mass/volume)Ordered By: Dr. Green on 11-12-2022 Cholesterol in VLDL [Mass/Vol] 22 mg/dL 5-40 [facility] Serum or plasma creatinine m easurement (mass/volume)Ordered By: Dr. Green on 11-12-2022 Creatinine [Mass/Vol] 0.67 mg/dL 0.55-1.02 [facility] Comment on above: The validity of the calculated GFR & GFRAA in patients over 70 years has not been determined. Clinical correlation is essential. Serum or plasma low density lipoprotein (LDL) cholesterol measurement (mass/volume)Ordered By: Dr. Green on 11-12-2022 Cholesterol in LDL [Mass/Vol] 90 mg/dL 0-130 [facility] Serum or plasma urea nitroge n measurement (mass/volume)Ordered By: Dr. Green on 11-12-2022 Urea nitrogen [Mass/Vol] 15 mg/dL 7-18 [facility] Thin prep Papanicolaou smear with manual screeningOrdered By: Dr. Green on 11-12-2022 Thin prep Papanicolaou smear with manual screening 8 5-15 [facility] Basophil percentageon 2021 Cholesterol [Mass/Vol] 243 mg/dL <200 [facility] Work Phone: Comment on above: <200 mg/dL Desirable 200-240 mg/dL Borderline >240 mg/dL High Risk Triglyceride [Mass/Vol] 90 mg/dL <199 [facility] Work Phone: Comment on above: The drugs N-Acetylcy steine and Metamizole may falsely depress this assay.Serum Triglycerides Reference Interval Normal <150 mg/dL Borderline high 150 - 199 mg/dL High 200 - 499 mg/dL Very High > or = 500 mg/dL Serum or plasma cholesterol in HDL measurement (mass/volume)on 05-07-2022 Cholesterol in HDL [Mass/Vol] 66 mg/dL >40 [facility] Work Phone: Comment on above: The drugs N-Acetylcy steine and Metamizole may falsely depress this assay. Reference Range HDL <40 mg/dL Low HDL Cholesterol HDL >or= 60 mg/dL High HDL Cholesterol Serum or plasma cholesterol in VLDL measurement (mass/volume)on 05-07-2022 Cholesterol in VLDL [Mass/Vol] 18 mg/dL 5-40 [facility] Work Phone: Serum or plasma low density lipoprotein (LDL) cholesterol measurement (mass/volume)on 05-07-2022 Cholesterol in LDL [Mass/Vol] 159 mg/dL 0-130 [facility] Work Phone: Basophil percentageon 2021 WBC (Bld) [#/Vol] 8.6 10*3/uL 4.4-11.0 [facility] Work Phone: Blood erythrocytes count (nu mber/volume)on 02-18-2022 RBC (Bld) [#/Vol] 4.66 10*6/uL 4.2-5.4 [facility] Work Phone: Blood hemoglobin measurement (mass/volume)on 02-18-2022 Hemoglobin (Bld) [Mass/Vol] 14.3 g/dL 12.0-15.0 [facility] Work Phone: Blood platelet mean volumeon 02-18-2022 Platelet mean volume (Bld) [Entitic vol] 9.7 fL 6.2-12.0 [facility] Work Phone: Determination of erythrocyte mean corpuscular volume (MCV)on 02-18-2022 MCV (RBC) [Entitic vol] 92.5 fL 81-99 [facility] Work Phone: Hematocrit Auto (Bld) [Volum e fraction]on 02-18-2022 Hematocrit (Bld) [Volume fraction] 43.1 % 37-47 [facility] Work Phone: Laboratory - Hematology and Cell countson 02-18-2022 Erythrocyte distribution width (RBC) [Entitic vol] 42.1 fL 35.1-43.9 [facility] Work Phone: Erythrocyte distribution width (RBC) [Ratio] 12.3 % 11.6-14.6 [facility] Work Phone: MCH (RBC) [Entitic mass] 30.7 pg 27.0-32.0 [facility] Work Phone: MCHC Auto (RBC) [Mass/Vol]on 02-18-2022 MCHC (RBC) [Mass/Vol] 33.2 g/dL 32-36 [facility]: Platelets bldon 02-18-2022 Platelets (Bld) [#/Vol] 325 10*3/uL 150-450 [facility] Work Phone: Serum or plasma C reactive p rotein measurement (mass/volume)on 02-18-2022 CRP [Mass/Vol] 4.33 mg/L 0.0-3.0 [facility] Work Phone: Comment on above: C-Reactive Protein ( CRP) provides useful information for thediagnosis, therapy and monitoring of inflammatory processesand associated diseases. For the evaluation of Relative Riskfor Cardiovascular Disease, a High Sensitivity CRP (HSCRP)should be ordered. Basophil percentageon 2021 Chloride [Moles/Vol] 109 mmol/L 98-[address] Work Phone: Cholesterol [Mass/Vol] 213 mg/dL <200 [facility] Work Phone: Comment on above: <200 mg/dL Desirable 200-240 mg/dL Borderline >240 mg/dL High Risk Glucose [Mass/Vol] 93 mg/dL 74-106 [facility] Work Phone: Potassium [Moles/Vol] 4.1 mmol/L 3.5-5.1 [address] Work Phone: Sodium [Moles/Vol] 143 mmol/L 136-145 [facility] Work Phone: Triglyceride [Mass/Vol] 113 mg/dL <199 [facility] Work Phone: Comment on above: The drugs N-Acetylcy steine and Metamizole may falsely depress this assay.Serum Triglycerides Reference Interval Normal <150 mg/dL Borderline high 150 - 199 mg/dL High 200 - 499 mg/dL Very High > or = 500 mg/dL Laboratory - Chemistry and C hemistry - challengeon 01-22-2022 CO2 [Moles/Vol] 29.0 mmol/L 21.0-32.0 [facility] Work Phone: Urea nitrogen/Creatinine [Mass ratio] 18.1 mg/mg 10-20 [facility] Work Phone: No Panel Informationon 01-22 Estimated GFR (MDRD) Amer 105 mL/min >60 [facility] Work Phone: Comment on above: GFR Calc Estimated GFR (MDRD) Non-Af Amer 87 mL/min >60 [facility] Work Phone: Comment on above: Non- GFR Calc Serum or plasma calcium franca urement (mass/volume)on 01-22-2022 Calcium [Mass/Vol] 8.9 mg/dL 8.5-10.1 [facility] Work Phone: Serum or plasma cholesterol in HDL measurement (mass/volume)on 01-22-2022 Cholesterol in HDL [Mass/Vol] 49 mg/dL >40 [facility] Work Phone: Comment on above: The drugs N-Acetylcy steine and Metamizole may falsely depress this assay. Reference Range HDL <40 mg/dL Low HDL Cholesterol HDL >or= 60 mg/dL High HDL Cholesterol Serum or plasma cholesterol in VLDL measurement (mass/volume)on 01-22-2022 Cholesterol in VLDL [Mass/Vol] 23 mg/dL 5-40 [facility] Work Phone: Serum or plasma creatinine m easurement (mass/volume)on 01-22-2022 Creatinine [Mass/Vol] 0.72 mg/dL 0.55-1.02 [facility] Work Phone: Comment on above: The validity of the calculated GFR & GFRAA in patients over 70 years has not been determined. Clinical correlation is essential. Serum or plasma low density lipoprotein (LDL) cholesterol measurement (mass/volume)on 01-22-2022 Cholesterol in LDL [Mass/Vol] 141 mg/dL 0-130 [facility] Work Phone: Serum or plasma urea nitroge n measurement (mass/volume)on 01-22-2022 Urea nitrogen [Mass/Vol] 13 mg/dL 7-18 [facility] Work Phone: Thin prep Papanicolaou smear with manual screeningon 01-22-2022 Thin prep Papanicolaou smear with manual screening 5 5-15 [facility] Work Phone: Vital Signs Date Time Vital Sign Value Performing Clinician Faci lity 11-09-2024 10:03-0500 Body temperature 97.4 [degF] Dr. Davy Green MD Work Phone: [facility] 11-09-2024 10:03-0500 Diastolic blood pressure 67 mm[Hg] Dr. Davy Green MD Work Phone: [facility] 11-09-2024 10:03-0500 Heart rate 70 /min Dr. Davy Green MD Work Phone: [facility] 11-09-2024 10:03-0500 Respiratory rate 16 /min Dr. Davy Green MD Work Phone: [facility] 11-09-2024 10:03-0500 SaO2% (BldA) [Mass fraction] 99 % Dr. Davy Green MD Work Phone: [facility] 11-09-2024 10:03-0500 Systolic blood pressure 150 mm[Hg] Dr. Davy Green MD Work Phone: [facility] 11-09-2024 09:19-0500 Body height 152.[address] Davy Green MD Work Phone: [facility] 11-09-2024 09:19-0500 Body mass index (BMI) [Ratio] 31.2 kg/m2 Dr. Davy Green MD Work Phone: [facility] 11-09-2024 09:19-0500 Body weight 72.[address] Davy Green MD Work Phone: [facility] 05-29-2024 09:43-0400 Body height 152.4 cm Douglas Montero MD Work Phone: [facility] 05-29-2024 09:43-0400 Body mass index (BMI) [Ratio] 31.05 kg/m2 Douglas Montero MD Work Phone: [facility] 05-29-2024 09:43-0400 Body weight 72.12 kg Douglas Montero MD Work Phone: [facility] 05-29-2024 09:43-0400 Diastolic blood pressure 82 mm[Hg] Douglas Montero MD Work Phone: [facility] 05-29-2024 09:43-0400 Systolic blood pressure 126 mm[Hg] Douglas Montero MD Work Phone: [facility] 10-21-2023 09:14-0500 Body temperature 97.5 [degF] Dr. Davy Green Work Phone: [facility] 10-21-2023 09:14-0500 Diastolic blood pressure 64 mm[Hg] Dr. Davy Green Work Phone: [facility] 10-21-2023 09:14-0500 Heart rate 71 /min Dr. Davy Green Work Phone: [facility] 10-21-2023 09:14-0500 Respiratory rate 16 /min Dr. Davy Green Work Phone: [facility] 10-21-2023 09:14-0500 SaO2% (BldA) [Mass fraction] 98 % Dr. Davy Green Work Phone: [facility] 10-21-2023 09:14-0500 Systolic blood pressure 150 mm[Hg] Dr. Davy Green Work Phone: [facility] 10-21-2023 08:24-0500 Body height 152.[address] Davy Green Work Phone: [facility] 10-21-2023 08:24-0500 Body mass index (BMI) [Ratio] 32.4 kg/m2 Dr. Davy Green Work Phone: [facility] 10-21-2023 08:24-0500 Body weight 75.[address] Davy Green Work Phone: [facility] 10-07-2023 09:48-0500 Body mass index (BMI) [Ratio] 31.8 kg/m2 Dr. Davy Green Work Phone: [facility] 10-07-2023 09:48-0500 Body temperature 98.7 [degF] Dr. Davy Green Work Phone: [facility] 10-07-2023 09:48-0500 Body weight 76.[address] Davy Green Work Phone: [facility] 10-07-2023 09:48-0500 Diastolic blood pressure 58 mm[Hg] Dr. Davy Green Work Phone: [facility] 10-07-2023 09:48-0500 Heart rate 72 /min Dr. Davy Green Work Phone: [facility] 10-07-2023 09:48-0500 Respiratory rate 16 /min Dr. Davy Green Work Phone: 9(755)[phone] [address] 10-07-2023 09:48-0500 SaO2% (BldA) [Mass fraction] 97 % Dr. Davy Green Work Phone: [facility] 10-07-2023 09:48-0500 Systolic blood pressure 142 mm[Hg] Dr. Davy Green Work Phone: 1(981)[phone] [place] [address] 04-20-2023 12:32-0400 Body height 154.[address] Davy Green Work Phone: 3(465)784-977339 [place] [address] 04-20-2023 12:32-0400 Body mass index (BMI) [Ratio] 31 kg/m2 Dr. Davy Green Work Phone: 8(158)[phone] [address] 04-20-2023 12:32-0400 Body temperature 98.4 [degF] Dr. Davy Green Work Phone: 4(990)227-907939 [place] [address] 04-20-2023 12:32-0400 Body weight 74.[address] Davy Green Work Phone: 4(086)[phone] [address] 04-20-2023 12:32-0400 Diastolic blood pressure 74 mm[Hg] Dr. Davy Green Work Phone: 7(902)885-935098 [address] 04-20-2023 12:32-0400 Heart rate 85 /min Dr. Davy Green Work Phone: 9(156)[phone] [address] 04-20-2023 12:32-0400 Respiratory rate 16 /min Dr. Davy Green Work Phone: [facility] 04-20-2023 12:32-0400 SaO2% (BldA) [Mass fraction] 96 % Dr. Davy Green Work Phone: [facility] 04-20-2023 12:32-0400 Systolic blood pressure 130 mm[Hg] Dr. Davy Green Work Phone: [facility] 10-16-2021 07:15-0500 Body height 154.[address] Davy Green Work Phone: [facility] Work Phone: 10-16-2021 07:15-0500 Body mass index (BMI) [Ratio] 30.4 kg/m2 Dr. Davy Green Work Phone: [facility] Work Phone: 10-16-2021 07:15-0500 Body temperature 97.8 [degF] Dr. Davy Green Work Phone: [facility] Work Phone: 10-16-2021 07:15-0500 Body weight 73.[address] Davy Green Work Phone: [facility] Work Phone: 10-16-2021 07:15-0500 Diastolic blood pressure 90 mm[Hg] Dr. Davy Green Work Phone: [facility] Work Phone: 10-16-2021 07:15-0500 Heart rate 88 /min Dr. Davy Green Work Phone: [facility] Work Phone: 10-16-2021 07:15-0500 Respiratory rate 15 /min Dr. Davy Green Work Phone: [facility] Work Phone: 10-16-2021 07:15-0500 SaO2% (BldA) [Mass fraction] 98 % Dr. Davy Green Work Phone: [facility] Work Phone: 10-16-2021 07:15-0500 Systolic blood pressure 190 mm[Hg] Dr. Davy Green Work Phone: [facility] Work Phone: Encounters Encounter Date Encounter Type Care Provider Facility Start: 07-02-2025 ambulatory [facility] Facility:[facility] Start: 06-13-2025 End: 06-14-2025 Telephone encounter Douglas Montero MD Work Phone: OB/Gynecology Comment on above: Orders Start: 02-19-2025 End: 02-19-[address] Davy Green MD Work Phone: [facility] Work Phone: Start: 02-19-2025 End: 02-19-[address] Mando Zarco MD -Laboratory, [place] Work Phone: Start: 02-19-2025 End: 02-19-2025 ambulatory Davy Green Facility:[facility] Start: 11-09-2024 End: 11-09-[address] Teddy Alvarenga MD -Medical Out Work Phone: Start: 11-09-2024 End: 11-09-2024 ambulatory Teddy Alvarenga Facility:[facility] Start: 10-18-2024 End: 10-18-2024 ambulatory Teddy Alvarenga Facility:[facility] Start: 10-08-2024 End: 10-08-2024 ambulatory Davy Green Facility:[facility] Start: 06-29-2024 End: 06-29-2024 ambulatory Douglas Montero Facility:[facility] Start: 05-29-2024 End: 05-29-2024 Patient encounter procedure Douglas Montero MD Work Phone: OB/Gynecology Comment on above: Encounter for gyneco logical examination (general) (routine) without abnormal findings (Primary Dx); Encounter for screening mammogram for breast cancer Start: 05-29-2024 End: 05-29-2024 Patient encounter status Douglas Montero MD Work Phone: [facility] Start: 11-18-2023 End: 11-18-[address] Davy Green Work Phone: [facility] Work Phone: Start: 11-18-2023 End: 11-18-[address] Davy Green Work Phone: [facility] Start: 10-21-2023 End: 10-21-[address] Davy Green Work Phone: [facility] Work Phone: Start: 10-21-2023 End: 10-21-[address] Davy Green Work Phone: [facility] Work Phone: Start: 10-21-2023 End: 10-21-[address] Davy Green Work Phone: [facility] Work Phone: Start: 10-21-2023 End: 10-21-[address] Davy Green Work Phone: [facility]-Medical Out Work Phone: Start: 10-07-2023 End: 10-07-[address] Davy Green Work Phone: [facility] Work Phone: Start: 06-22-2023 End: 06-22-[address] Davy Green Work Phone: [facility] Work Phone: Start: 06-22-2023 End: 06-22-[address] Davy Green Work Phone: [facility]-Outpatient Breast Imaging Work Phone: Start: 05-23-2023 End: 05-23-[address] Davy Green Work Phone: [facility] Work Phone: Start: 05-23-2023 End: 05-23-[address] Davy Green Work Phone: [facility] Start: 04-26-2023 End: 04-26-[address] Davy Green Work Phone: [facility] Work Phone: Start: 04-26-2023 End: 04-26-[address] Davy Green Work Phone: [facility] Work Phone: Start: 04-20-2023 End: 04-20-[address] Davy Green Work Phone: [facility] Work Phone: Start: 11-12-2022 End: 11-12-2022 ambulatory [facility] Work Phone: Start: 11-12-2022 End: 11-12-2022 Patient encounter procedure [facility] Start: 05-07-2022 End: 05-07-2022 Patient encounter procedure [facility] Start: 04-23-2022 End: 04-23-2022 Patient encounter procedure [facility] Start: 02-18-2022 End: 02-18-2022 Patient encounter procedure [facility] Start: 01-22-2022 End: 01-22-[address] Davy Green Work Phone: [facility] Start: 10-16-2021 End: 10-16-[address] Davy Green Work Phone: [facility] Procedures Date Procedure Procedure Detail Performing Clinician Start: 06-22-2023 Screening mammography Javier Green Work Phone: Start: 04-23-2022 Screening mammography H/O: tubal ligation History of t ubal ligation Dr. Davy Green Work Phone: Plan of Treatment Date Care Activity Detail Author Start: 08-13-2025 End: 08-13-2025 Patient encounter procedure 08/13/2025 8:40 AM EDT Office Visit OB/Gynecology [address] [place] [address] Douglas Montero MD [address] [place] [address] Annual OB/Gynecology Comment on above: Annual Start: 07-01-2025 Influenza vaccination Influenza Vacc ine (#1) [facility] Start: 06-29-2025 Screening for malign ant neoplasm of breast Mammogram Screening [facility] Start: 05-31-2025 End: 05-31-2025 Patient encounter procedure 05/31/2025 9:00 AM EDT Office Visit OB/Gynecology [address] [place] [address] Douglas Montero MD [address] [place] [address] Annual OB/Gynecology Comment on above: Annual Start: 11-09-2024 Iv infusion therapy/prophylaxis /dx 1st to 1 hr THER/PROPH/DIAG IV INF [facility] Start: 10-31-2024 Advance Directive Discussion Advance Directive Discussion [facility] Start: 07-01-2024 Influenza vaccination Influenza Vacc ine (#1) [facility] Start: 10-31-2023 Advance Directive Discussion Advance Directive Discussion [facility] Start: 10-21-2023 Iv infusion therapy/prophylaxis /dx 1st to 1 [facility] Start: 06-22-2023 Dual energy X-ray absorptiometry Dexa Bone Density Study [facility] Start: 06-22-2023 DXA Bone [Mass/Area] Bone density [facility] Start: 2022 Screening for osteoporosis Bone Density Screening [facility] Start: 2017 RSV Vaccine (1 - 1-d ose 60+ series) RSV Vaccine (1 - 1-dose 60+ series) [facility] Start: 2017 RSV Vaccine (1 - Ris k 60-74 years 1-dose series) RSV Vaccine (1 - Risk 60-74 years 1-dose series) [facility] Start: 2002 Diabetes Screening Diabetes Screenin g [facility] Start: 2002 Lipid panel Lipid Screening [facility] Start: 2002 Screening for malign ant neoplasm of colon [facility] Start: 1997 Screening for malign ant neoplasm of breast Mammogram Screening [facility] Start: 1976 Pneumococcal Vaccine : 50+ (1 of 2 - PCV) Pneumococcal Vaccine: 50+ (1 of 2 - PCV) [facility] Start: 1976 Urine microalbumin profile DTaP,Tdap,Td Vaccine (1 - Tdap) [facility] Start: 1975 Anxiety Screening Anxiety Screening [facility] Start: 1975 Depression Screening Depression Scre ening [facility] Start: 1975 Hepatitis C screening Hepatitis C Sc reening [facility] Start: 1968 Screening for malign ant neoplasm of cervix Cervical Cancer Screening [facility] Start: 1963 Pneumococcal Vaccine : 65+ (1 of 2 - PCV) Pneumococcal Vaccine: 65+ (1 of 2 - PCV) [facility] Start: 1962 Covid-19 Vaccine (#1) Covid-19 Vacci ne (#1) [facility] End: 07-13-2026 DBT Breast - bilateral screening MYLENE SCREENING W KHALIF Radiology Routine Encounter for screening mammogram for malignant neoplasm of breast 1 Occurrences starting 06/14/2025 until 07/13/2026 [facility] Work Phone: Comment on above: 1 Occurrences starti ng 06/14/2025 until 07/13/2026 Immunizations Immunization Date Immunization Notes Care Provider Elizabeth cabello 07-26-2023 influenza virus vacc ine, unspecified formulation Douglas Montero MD Work Phone: [facility] Payers Date Payer Category Payer Self-pay [id number] 2023 Unknown [id number] 2020 [employer] Blue [employer] BLUE CARD PPO OOS Member Subscriber Plan / Payer (Effective 2020-Present) Name: SEFERINO HANNAH Relation to Subscriber: Spouse Name: JERMAN HANNAH Date of : 1959 (Home) Address: [address] [address] Payer ID: [id number] (NAIC) Type: PPO Address: [address] [place] [id number] 2020 Unknown [employer] BLUE CARD PPO OOS [id number] 2020-Present [phone] [address] [place] [address] PPO [id number] Unknown [id number] Unknown [id number] Unknown [id number] Unknown [id number] Unknown [id number] Unknown [id number] Unknown [id number] Social History Date Type Detail [facility] Work Phone: Start: 1955 Sex Assigned At Female [facility] Start: 04-20-2023 End: 04-20-2023 Tobacco smoking status NHIS Unknown if ever smoked [facility] Start: 02-13-2012 End: 08-17-2023 Tobacco smoking status NHIS Never smoked tobacco [facility] Start: 05-29-2024 Alcohol intake Not Asked Nury herrera [facility] Start: 05-29-2024 History of Social function [facility] Start: 05-29-2024 Tobacco use panel [facility] Start: 1955 Sex Assigned At Not on file [facility] Start: 02-25-2025 Sex Female (finding) [facility] Start: 10-01-2012 Sex Female [facility] Functional Status Date Assessment Result Facility 12-08-2014 Are you deaf, or do you have serious difficulty hearing No 12/08/2014 12:46 PM Leonie Argueta RN No [facility] Work Phone: 12-08-2014 Are you blind, or do you have serious difficulty seeing, even when wearing glasses No 12/08/2014 12:46 PM Leonie Argueta RN No [facility] 12-08-2014 Do you have serious difficulty walking or climbing stairs No 12/08/2014 12:46 PM Leonie Argueta RN No [facility] 12-08-2014 Do you have difficul ty dressing or bathing No 12/08/2014 12:46 PM Leonie Argueta RN No [facility] 12-08-2014 Because of a physica l, mental, or emotional condition, do you have difficulty doing errands alone such as visiting a physician's office or shopping No 12/08/2014 12:46 PM Leonie Argueta RN No [facility] Mental Status Date Assessment Result Facility 11-09-2024 Cognitive function Awake;Alert;A ppropriate; Follows Commands [facility] Work Phone: 12-08-2014 Because of a physica l, mental, or emotional condition, do you have serious difficulty concentrating, remembering, or making decisions No 12/08/2014 12:46 PM Leonie Argueta RN No [facility] Clinical Notes 05-29-2024 to 06-14-2025 Telephone Encounter - Amanda Gann RN - 06/14/2025 12:21 PM EDTTelephone Encounter - Amanda Gann RN - 06/14/2025 12:21 PM Douglas Warner MD - 05/29/2024 9:41 AM EDT Note Date & Type Note Facility 06-14-2025 Telephone encounter Note Form atting of this note might be different from the original. Epic order faxed to [facility]. Amanda Gann RN [facility] 06-14-2025 Miscellaneous Notes Formattin g of this note might be different from the original. Epic order faxed to [facility]. Amanda Gann RN Order pended. Nicolette Paulson RN Please place [facility] order and fax to the [facility] as patient is due after 06/29/2025 documented in this encounter [facility] 06-13-2025 Telephone encounter Note Form atting of this note might be different from the original. Order pended. Nicolette Paulson RN [facility] 06-13-2025 Telephone encounter Note Form atting of this note might be different from the original. Please place [facility] order and fax to the [facility] as patient is due after 06/29/2025 [facility] 05-29-2024 History of Presen t illness Narrative Seferino is a 69 year old who presents for an annual gynecologic exam without complaints. S/p hysterectomy for abnormal cells but no cancer. No vaginal bleeding now. No current hot flashes but some night sweats. Postmenopausal: yes HRT use: No. Last Pap: uncertain HPV: uncertain History of abnormal pap: uncertain Last mammogram: 2022 normal History of abnormal mammogram: No Sexually active: not currently, w/ ED OB History T2 L3 SAB0 IAB0 Ectopic0 Multiple1 Live Births3 [employer] History LMP: Hysterectomy Age at Menarche: Age at First : Age at Menopause: [employer] Development [employer] History Comments: Sexual Activity: Not Currently; No partner data on record Contraception: Surgical PAST MEDICAL HISTORY Diagnosis Date Crohn disease (HCC) Essential hypertension High cholesterol Kidney stone Osteoporosis PAST SURGICAL HISTORY Procedure Laterality Date EXCISION PILONIDAL CYST/SINUS SIMPLE EXT HYSTERECTOMY,W/PARTIAL VAGINECTO TUBAL LIGATION, FAMILY HISTORY Problem Relation Age of Onset Heart Mother Coronary Artery Disease Mother other (tuberculosis [Other]) Father Emphysema Father Multiple Sclerosis Sister SOCIAL HISTORY Social History Tobacco Use Smoking status: Never Vaping Use Vaping Use: Never used REVIEW OF SYSTEMS Abdomen: No abdominal pain, nausea, vomiting, diarrhea, or constipation. No bloating, early satiety, indigestion, or increased flatulence. Bladder: No dysuria, gross hematuria, urinary frequency, urinary urgency, or incontinence Breast: No breast lumps, nipple d/c, overlying skin changes, redness or skin retraction Allergies and current medication updated:Yes EXAM: BP 126/82 Ht 5' 0 (1.52m) Wt 159 lb (72.1kg) BMI 31.05 kg/(m^2). GENERAL: pleasant, female in no apparent distress HEENT: Normocephalic, atraumatic, mucus membranes moist, and no lesions NECK: Supple, full range of motion, no adenopathy, and thyroid normal DERMATOLOGY: Normal, without lesions, non-icteric, and non-hirsute BREAST: soft, non-tender, symmetric, no dominant mass, normal nipple-areolar complex, no lymphadenopathy, and no nipple discharge CHEST: Normal inspiratory effort ABDOMEN: soft, non-tender, and no masses PELVIC: external genitalia normal, normal Bartholin's glands, urethra, [place] glands, no vulvar lesions, physiologic discharge present, normal appearing perineal body and perianal region, cystocele 1st degree, atrophic changes flattened atrophic epithelium BIMANUAL: no adnexal masses, non-tender, and uterus surgically absent RECTOVAGINAL: deferred. NEURO: alert and oriented x3,exam grossly non-focal EXTREMITIES: normal ASSESSMENT/PLAN: 1) Health maintenance: Pap/HPV screening no longer needed Mammogram ordered Colon cancer screening: up to date with screening BMD: up to date 2) Follow up one year or sooner as needed Douglas Montero MD documented in this encounter [facility] Evaluation note Diagnosis Onset Date Acute sinusitis acute [facility] Work Phone: Evaluation noteNo assessment information available [facility] Work Phone: Evaluation note* Diagnosis Onset Date Resolution Status Osteoporosis chronic [facility] Work Phone: Evaluation note* Diagnosis Encounter for gynecological examination (general) (routine) without abnormal findings- Primary Encounter for screening mammogram for breast cancer [facility] Diagnosis Encounter for screening mammogram for malignant neoplasm of breast- Primary Other screening mammogram [facility]Reason for referral (narrative)No reason for referral information available[facility]: Chief Complaint and Reason for Visit Chief Complaint HEAD/FACE CONGESTION /DRAINAGE Reason for Visit Acute sinusitis Chief Complaint STANDING ORDER Chief Complaint STANDING ORDER SCREENING Chief Complaint SINUS PRESSURE/SORE THROAT/BILAT EAR CONCERN S/O- CROHNS/ ANEMIA Reason for Visit Acute sinusitis Chief Complaint SINUS PRESSURE/SORE THROAT/BILAT EAR CONCERN S/O- CROHNS/ ANEMIA SCREENING Reason for Visit Acute sinusitis Chief Complaint Osteoporosis Reclast EORDER Reason for Visit Osteoporosis Chief Complaint Admit Date RECLAST November 09, 2024 9 :03am SEE ORDER- COPY SUSIE January 302024 2:38pm Family History No Family History Records Found Relationship Condition Age at Onset Recorded Date/T christina unrelated friend Cardiac disease Unknown Chronic obstructive pulmonary disease Unknown Relationship Condition Age at Onset Recorded Date/T christina Not Specified Cardiac disease Unknown Chronic obstructive pulmonary disease Unk nown Summary Purpose Advance Directives No Advanced Directives Records FoundNo Advanced Directives Records Found Additional Source Comments Goals (unrecognized section and content) Goals may be documented in a n alternate sectionGoals may be documented in an alternate sectionGoals may be documented in an alternate sectionGoals may be documented in an alternate sectionGoals may be documented in an alternate sectionGoals may be documented in an alternate sectionGoals may be documented in an alternate sectionGoals may be documented in an alternate sectionGoals may be documented in an alternate sectionGoals may be documented in an alternate sectionGoals may be documented in an alternate sectionGoals may be documented in an alternate section Care Teams (unrecognized sec tion and content) Team Status: Active Member Role Status Dates Dr. Davy Green MD Family Provider Active Dr. Davy Green MD Primary Care Provider Active Team Status: Inactive Member Role Status Dates Dr. Davy Green MD Primary Care Provider, Attending Provider Active Team Status: Inactive Member Role Status Dates Dr. Davy Green MD Primary Care Provider, Referring Provider Active Aram KEENE, PA Attending Provider Active Team Status: Inactive Member Role Status Dates Dr. Davy Green MD Primary Care Provider Active Dr. Mando Zarco MD Attending Provider, Referring Provider Active Team Status: Inactive Member Role Status Dates Dr. Davy Green MD Primary Care Provider Active Dr. Janelle Hannah DO Attending Provider, Referrin g Provider Active Team Status: Inactive Member Role Status Dates Dr. Davy Green MD Primary Care Provider, Referring Provider Active Dr. Teddy Alvarenga MD Attending Provider Active Team Status: Inactive Member Role Status Dates Dr. Davy Green MD Primary Care Provider Active Dr. Teddy Alvarenga MD Attending Provider, Referring Provi dallin Active Team Status: Active Member Role Status Dates Dr. Davy Green MD Primary Care Provider Active Dr. Teddy Alvarenga MD Attending Provider, Referring Provi dallin Active [employer] Relationship Specialty Start Date End Date Davy Green MD PCP - General Family Medicine 08/16/17 Team Status: Inactive Member Role Status Dates Dr. Davy Green MD Primary Care Provider Active Start: November 09, 2024 End: November 09, 2024 Dr. Teddy Alvarenga MD Attending Provider Active Sta rt: November 09, 2024 End: November 09, 2024 Dr. Teddy Alvarenga MD Referring Provider Active Sta rt: November 09, 2024 End: November 09, 2024 Team Status: Inactive Member Role Status Dates Dr. Davy Green MD Primary Care Provider Active Start: February 19, 2025 End: February 19, 2025 Dr. Davy Green MD Other Provider Active Star t: February 19, 2025 End: February 19, 2025 Dr. Mando Zarco MD Attending Provider Active Start: February 19, 2025 End: February 19, 2025 Dr. Mando Zarco MD Referring Provider Active Start: February 19, 2025 End: February 19, 2025 Dr. Teddy Alvarenga MD Other Provider Active Start: February 19, 2025 End: February 19, 2025 [employer] Relationship Specialty Start Date End Date Davy Green MD PCP - General Family Medicine 08/16/17 Source Comments (unrecognize d section and content) In the event this informatio n is protected by the Federal Confidentiality of Alcohol and Drug Abuse Patient Records regulations: The Federal rules restrict any use of the information to criminally investigate or prosecute any alcohol or drug abuse patient.[facility] the event this information is protected by the Federal Confidentiality of Alcohol and Drug Abuse Patient Records regulations: The Federal rules restrict any use of the information to criminally investigate or prosecute any alcohol or drug abuse patient.[facility] Reason for Visit (unrecogniz ed section and content) Reason Comments Yearly Exam Reason Comments Orders INFORMATION SOURCE (unrecogn ized section and content) DATE CREATED AUTHOR 06/16/2025 [facility] DATE CREATED AUTHOR 'Ellis EUCEDA 06/22/2025 [facility] FOR RECORDS PERTAINING TO PATIENTS WHO ARE [...] BE BASED ON THE PRIMARY CLINICAL RECORDS. [facility] [employer] [facility]. provides no warranty or guarantee of the accuracy or completeness of information in this document.
== END | disposition home or self-care (01) ==
LOC: OPBI 07:24
PROVIDERS: PCP Family Medicine; Referring Provider Nurse Practitioner Women's Health; Visit Provider Nurse Practitioner Women's Health
DX: Z12.31 Encounter for screening mammogram for malignant neoplasm of breast (principal)
CPT/HCPCS: 77063; 77067

== ENCOUNTER → 2025-09-17 | Outpatient (CLI) | payer BC, SELFPAY ==
[2025-09-17 10:29] LABS: AST(SGOT) 18 U/L (<=31); Alanine Aminotransfer ALT/SGPT 20 U/L (<=34); Albumin, Serum 4.4 g/dL (3.4-4.8); Alkaline Phosphatase 76 U/L (35-104); Anion Gap 9 (5-15); BUN 12 mg/dL (4-19); BUN/Creat Ratio 17.5 RATIO (10-20); Calcium,Total 9.3 mg/dL (7.6-11.0); Carbon Dioxide 27.6 mmol/L (21.0-32.0); Chloride 105 mmol/L (98-108); Cholesterol 171 mg/dL (<=200); Globulin 2.5 g/dL (2.2-4.2); Glucose 99 mg/dL (70-99); Low Density Lipoprotein Calc. 83 mg/dL; Potassium 4.0 mmol/L (3.3-5.1); Triglycerides 128 mg/dL; Very Low Density Lipoprotein 26 mg/dL (5-40); cholesterol:hdl ratio screen 2.60
== END | disposition home or self-care (01) ==
LOC: MTLAB 09:06
PROVIDERS: PCP Family Medicine; Referring Provider Family Medicine; Visit Provider Family Medicine
DX: Z00.00 Encounter for general adult medical examination without abnormal findings (principal)
CPT/HCPCS: 36415; 80053; 80061